=== PATIENT | male | born 1970 | race Caucasian/White ===

== ENCOUNTER 2016-07-23 14:34 | Emergency (ER) | payer OTHER ==
[~2016-07-23] VITALS: Wt 90.0 kg
[~2016-07-23 14:34] MED LIST: ACET-2047 PO; ALBU18HF INHALATION; BEN25 PO; BENA40TA41; CEPH-443 PO; FAMO-18 PO; HYDR-3498 PO; IBUP-1542 PO; INSU100C SC; LANT3I SC; NAPR-688 PO; PRED20TA PO; TEN25
[2016-07-23] MEDS ORDERED: ONDANSETRON 4 MG INJ IV STA (17:16)
[2016-07-23] MEDS ORDERED: morphine 4 MG/ML VIAL IV STA (17:16)
[2016-07-23 17:41] LABS: ADD SCAN DIFF NO
[2016-07-23 17:43] LABS: BASOPHIL # 0.1 10^3/ul (0.0-0.1); BASOPHILS % 0.7 % (0.0-2.0); EOSINOPHILS # 0.2 10^3/ul (0.0-0.5); EOSINOPHILS % 1.7 % (0.0-7.0); HEMATOCRIT 46.5 % (42.0-52.0); HEMOGLOBIN 15.9 g/dl (14.0-18.0); LYMPHOCYTES # 3.5 10^3/ul (0.8-2.9); LYMPHOCYTES % 34.5 % (15.0-51.0); MEAN CORPUSCULAR HEMOGLOBIN 30.4 pg (29.0-33.0); MEAN CORPUSCULAR HGB CONC 34.2 g/dl (32.0-37.0); MEAN CORPUSCULAR VOLUME 88.9 fl (82.0-101.0); MEAN PLATELET VOLUME 10.9 fl (7.4-10.4); MONOCYTE # 0.8 10^3/ul (0.3-0.9); MONOCYTES % 7.4 % (0.0-11.0); NEUTROPHIL # 5.7 10^3/ul (1.6-7.5); NEUTROPHILS % 55.4 % (39.0-77.0); PLATELET COUNT 273 10^3/UL (140-415); RED BLOOD COUNT 5.23 10^6/ul (4.70-6.10); RED CELL DISTRIBUTION WIDTH 12.1 % (11.5-14.5); WHITE BLOOD COUNT 10.2 10^3/ul (4.8-10.8)
[2016-07-23 17:57] LABS: ADD UMIC YES; URINE BILIRUBIN (Dip) NEGATIVE (NEGATIVE); URINE BLOOD (Dip) NEGATIVE (NEGATIVE); URINE COLOR YELLOW (YELLOW); URINE KETONES (Dip) NEGATIVE (NEGATIVE); URINE LEUKOCYTE ESTERASE (Dip) NEGATIVE (NEGATIVE); URINE NITRITE (Dip) NEGATIVE (NEGATIVE); URINE TOTAL PROTEIN (Dip) TRACE (NEGATIVE); URINE UROBILINOGEN (Dip) 0.2 E.U./dL (0.1-1.0)
--- NOTE | 2016-07-23 18:00 | RADRPT ---
PROCEDURE: US Abdomen (right upper quadrant). CLINICAL INDICATION: Right upper quadrant abdomen pain. TECHNIQUE: Multiple real-time longitudinal and transverse images of the right upper quadrant of th e abdomen were acquired utilizing a curved array transducer. Images were reviewed on a high-resoluti on PACS workstation. COMPARISON: None FINDINGS: This is a limited study due to a large amount of bowel gas overlying the upper abdomen. The pancrea s, left lobe of liver, and gallbladder are not well seen. The visualized portion of the liver is normal in size and echogenicity. There is no focal hepatic l esion. The visualized portion of the gallbladder is unremarkable. The bile ducts are normal with the common bile duct measuring 4.6 mm in diameter. The pancreas is not visualized. No free fluid is present. The right kidney measures 12.1 x 5.2 x 7.0 cm. There is normal echogenicity of the right kidney. There is no perinephric fluid collection. No hydronephrosis, mass, or calculus is seen. IMPRESSION: 1. Limited study due to overlying bowel gas. 2. Otherwise unremarkable study. RPTAT: QQ .Jerad Jordan MD, Date Time Electronically viewed and signed by .Jerad Jordan MD, on 07/23/2016 18:00 .R/
--- NOTE | 2016-07-23 18:01 | RADRPT ---
PROCEDURE: Chest x-ray CLINICAL INDICATION: Abdominal pain TECHNIQUE: Chest single view COMPARISON: 11/03/2015 FINDINGS: The heart is normal in size. The pulmonary vessels are normal in caliber. The lungs are clear. Th e costophrenic angles are sharp. The visualized bony thorax is unremarkable. IMPRESSION: No acute cardiopulmonary disease. RPTAT: HH .Choco Tapia MD, Date Time Electronically viewed and signed by .Choco Tapia MD, on 07/23/2016 18:01 .W/
[2016-07-23 18:04] LABS: ALBUMIN 4.6 g/dl (3.3-4.9); POTASSIUM 4.5 mmol/L (3.5-5.1)
[2016-07-23 18:07] LABS: ALBUMIN/GLOBULIN RATIO 1.27; BILIRUBIN,INDIRECT 0.5 mg/dl (0-1.1); BILIRUBIN,TOTAL 0.5 mg/dl (0.2-1.3); CREATININE 0.93 mg/dl (0.61-1.24); TOTAL PROTEIN 8.2 g/dl (6.1-8.1)
[2016-07-23 18:08] LABS: CALCIUM 9.5 mg/dl (8.4-10.2)
[2016-07-23 18:27] LABS: MUCUS,URINE FEW
[2016-07-23 18:28] LABS: BACTERIA,URINE FEW; SQUAMOUS EPITHELIAL CELL,UR MODERATE; URINE RBCS 0-2 /HPF (0)
[2016-07-23] MEDS ORDERED: TRAM-40 PO (18:57)
[2016-07-23] MEDS ORDERED: IBUP-1542 PO (18:57)
--- NOTE | 2016-07-23 19:01 | ERD ---
ER Documentation Chief Complaint Date/Time DATE: 07/23/16 TIME: 18:59 Chief Complaint R UPPER QUAD ABD PAIN SINCE TODAY. NO NAUSEA NO VOMITING, NO HEADACHE HPI This 46-year-old male complains of right upper quadrant abdominal pain since morning. Denies any nausea vomiting, fevers. He denies any chest pain or shortness of breath. He denies any dysuria. ROS All systems reviewed and are negative except as per history of present illness. Medications Home Meds Active Scripts Ibuprofen* (Ibuprofen*) 600 Mg Tablet, 600 MG PO Q6, #20 TAB Prov:PATTI ANGLIN MD 07/23/16 Tramadol Hcl* (Ultram*) 50 Mg Tablet, 50 MG PO Q6H Y for PAIN, #20 TAB Prov:PATTI ANGLIN MD 07/23/16 Acetaminophen* (Acetaminophen*) 650 Mg Tablet, 650 MG PO Q6H Y for PAIN AND OR ELEVATED TEMP, #20 TAB Prov:ALLIE GRAHAM DO 04/18/16 Ibuprofen* (Ibuprofen*) 600 Mg Tablet, 600 MG PO Q8, #20 TAB Prov:ALLIE GRAHAM DO 04/18/16 Cephalexin* (Keflex*) 500 Mg Capsule, 500 MG PO QID for 5 Days, CAP Prov:GLADYS,[facility] 04/18/16 Albuterol Sulfate* (Ventolin HFA*) 18 Gm Hfa.aer.ad, 2 PUFF INHALATION Q6H, #1 INHALER 0 Refills Prov:MELI MANN PA-C 01/13/16 Famotidine* (Pepcid*) 20 Mg Tablet, 20 MG PO BID for 4 Days, #8 TAB 0 Refills Prov:MELI MANN PA-C 01/13/16 Diphenhydramine Hcl* (Benadryl*) 25 Mg Cap, 25 MG PO Q6 for ITCHING for 7 Days, #30 CAP 0 Refills Prov:MELI MANN PA-C 01/13/16 Prednisone* (Prednisone*) 20 Mg Tab, 40 MG PO DAILY for 4 Days, #8 TAB 0 Refills Prov:MELI MANN PA-C 01/13/16 Hydrocodone Bit-Acetaminophen* ([place]*) 5-325 Mg Tab, 1 TAB PO Q4H Y for SEVERE PAIN LEVEL 7-10, #5 TAB Prov:VIJAYA HUYNH DO 11/03/15 Naproxen* (Naproxen*) 500 Mg Tablet, 500 MG PO BID, #20 TAB Prov:VIJAYA HUYNH DO 11/03/15 Reported Medications Insulin Lispro (Humalog) 100 U/Ml Cartridge, 40 UNITS SC AC BREAKFAST DINNER, EA 06/22/15 Insulin Glargine* (Lantus*) 100 Unit/Ml Soln, 60 UNIT SC AC BREAKFAST DINNER, # 1 VIAL 06/22/15 Benazepril Hcl* (Benazepril Hcl*) 40 Mg Tablet 10/07/09 Atenolol (Tenormin) 25 Mg Tab 10/07/09 Allergies Allergies: Coded Allergies: No Known Allergy (Verified , 11/03/15) PMhx/Soc History of Surgery: Yes (left knee, left shoulder) Anesthesia Reaction: No Hx Neurological Disorder: No Hx Respiratory Disorders: No Hx Cardiac Disorders: Yes (HTN) Hx Psychiatric Problems: No Hx Miscellaneous Medical Probl: Yes (DM) Hx Alcohol Use: Yes (OCASSIONALLY) Hx Substance Use: No Hx Tobacco Use: No Smoking Status: Never smoker Physical Exam Vitals Vital Signs Date Time Temp Pulse Resp B/P Pulse Ox O2 Delivery O2 Flow Rate FiO2 07/23/16 14:44 98.8 102 20 165/91 98 Physical Exam Const: [] Alert, [id number] per Head: Atraumatic Eyes: Normal Conjunctiva ENT: Normal External Ears, Nose and Mouth. Neck: Full range of motion..~ No meningismus. Resp: Clear to auscultation bilaterally Cardio: Regular rate and rhythm, no murmurs Abd: Soft mild tenderness right upper quadrant. No rebound. No tenderness at McBurney's point., non distended. Normal bowel sounds Skin: No petechiae or rashes Back: No midline or flank tenderness Ext: No cyanosis, or edema Neur: Awake and alert Psych: Normal Mood and Affect Result Diagram: 07/23/16 1720 07/23/16 1720 Results 24 hrs Laboratory Tests Test 07/23/16 17:20 Alanine Aminotransferase (ALT/SGPT) 33IU/L Albumin 4.6g/dl Albumin/Globulin Ratio 1.27 Alkaline Phosphatase 165IU/L Anion Gap 18 Aspartate Amino Transf (AST/SGOT) 39IU/L Basophils # 0.110^3/ul Basophils % 0.7% Blood Urea Nitrogen 19mg/dl Calcium Level 9.5mg/dl Carbon Dioxide Level 34mmol/L Chloride Level 99mmol/L Creatinine 0.93mg/dl Direct Bilirubin 0.00mg/dl Eosinophils # 0.210^3/ul Eosinophils % 1.7% Globulin 3.60g/dl Glucose Level 235mg/dl Hematocrit 46.5% Hemoglobin 15.9g/dl Indirect Bilirubin 0.5mg/dl Lipase 42U/L Lymphocytes # 3.510^3/ul Lymphocytes % 34.5% Mean Corpuscular Hemoglobin 30.4pg Mean Corpuscular Hemoglobin Concent 34.2g/dl Mean Corpuscular Volume 88.9fl Mean Platelet Volume 10.9fl Monocytes # 0.810^3/ul Monocytes % 7.4% Neutrophils # 5.710^3/ul Neutrophils % 55.4% Nucleated Red Blood Cells # 0.010^3/ul Nucleated Red Blood Cells % 0.0/100WBC Platelet Count 50922^3/UL Potassium Level 4.5mmol/L Red Blood Count 5.2310^6/ul Red Cell Distribution Width 12.1% Sodium Level 146mmol/L Total Bilirubin 0.5mg/dl Total Protein 8.2g/dl Urine Bacteria FEW Urine Bilirubin NEGATIVE Urine Clarity CLEAR Urine Color YELLOW Urine Glucose 0.5%% Urine Hemoglobin NEGATIVE Urine Ketones NEGATIVE Urine Leukocyte Esterase NEGATIVE Urine Microscopic RBC 0-2/HPF Urine Microscopic WBC 5-10/HPF Urine Mucus FEW Urine Nitrite NEGATIVE Urine Specific [place] 1.025 Urine Squamous Epithelial Cells MODERATE Urine Total Protein TRACE Urine Urobilinogen 0.2 E.U./dL Urine pH 6.0 White Blood Count 10.210^3/ul Current Medications Medications (Trade) Dose Ordered Sig/Kelvin Route PRN Reason Start Time Stop Time Status Last Admin Dose Admin Morphine Sulfate (morphine) 4 mg ONCE STAT IV 07/23/16 17:16 07/23/16 17:17 DC 07/23/16 17:20 Ondansetron HCl (Zofran Inj) 4 mg ONCE STAT IV 07/23/16 17:16 07/23/16 17:17 DC 07/23/16 17:21 IV Flush 10 ml 10 ml STK-MED ONCE .ROUTE 07/23/16 19:35 2/27/17 19:36 DC 07/23/16 19:43 Sodium Chloride (NS) 100 ml @ ud STK-MED ONCE .ROUTE 07/23/16 19:35 07/23/16 19:36 DC 07/23/16 19:43 Iohexol (Omnipaque 300mg/ ml) 150 ml STK-MED ONCE .ROUTE 07/23/16 19:35 07/23/16 19:36 DC 07/23/16 19:43 Procedures/MDM Given the uncertain cause of right upper quadrant pain right upper quadrant ultrasound shows no gallstones or acute abnormalities. Chest X-ray 1V Interpreted by me: Soft Tissue: No acute abnormalities Bones: No acute abnormalities Mediastinum/Cardiac Silhouette/Lungs: [No acute abnormalities]. Impression Normal 1 view chest x-ray Patient was given morphine 4 mg IV and Zofran 4 mg IV. CBC shows no acute abnormality. C and P shows elevated glucose otherwise no acute findings and no transaminitis and lipase is normal. Persistent tenderness on serial exam. CT abdomen and pelvis and chest with IV contrast to evaluate aorta showed no acute abnormalities according to the radiologist.. Patient is right upper quadrant abdominal pain 1 day of uncertain etiology. Patient was given Toradol 30 mg IV. May be muscular skeletal. Signs or symptoms not consistent with pulmonary embolism, acute coronary syndrome, aortic disease, acute abdomen, UTI or genitourinary etiology. He will be treated with tramadol and ibuprofen and further observation at home. Patient should return for chest pain, shortness breath, fevers, worsening pain, new worsening symptoms or primary care doctor this week. The patient was stable with no new complaints during the ER course. Clinically, there is no current evidence to suggest meningitis, sepsis, acute abdomen, pneumonia, acute coronary syndrome, pulmonary embolism, or any other emergent condition appearing to require further evaluation or hospitalization. The patient should certainly return for any new or worsening symptoms per the aftercare instructions. They should otherwise follow-up with her primary care doctor for reevaluation this week. Departure Diagnosis: Primary Impression: Abdominal pain Abdominal location: right upper quadrant Qualified Code: R10.11 - Right upper quadrant abdominal pain Condition: Stable Patient Instructions: Abdominal Pain Additional Instructions: Examines normal hoy. Cheque otro vez con shaver doctor primario en el proximo tamez or regresa para mas o nueva simptomas. TEEHEE,PATTI N. MD Jul 23, 2016 19:01
[2016-07-23] MEDS ORDERED: SOD CHLORIDE 0.9% 100 ML ONE (19:35)
[2016-07-23] MEDS ORDERED: IOHEXOL 300MG/ML 150 ML BTL ONE (19:35)
--- NOTE | 2016-07-23 19:57 | RADRPT ---
PROCEDURE: CT Chest, Abdomen and Pelvis with contrast. CLINICAL INDICATION: Abdominal and chest pain TECHNIQUE: CT scan of the chest, abdomen, and pelvis with contrast was performed on a multi-detect or high-resolution CT scanner. The patient was scanned following the uncomplicated intravenous admi nistration of 100 cc of Omnipaque 300 intravenous contrast. Coronal and sagittal reformatted images were obtained from the axial source images. Images were reviewed on a high-resolution PACS workstat ion. The total exam CTDI equals 13.4 mGy and the total exam DLP equals 1105 mGy-cm. COMPARISON: CT of the abdomen and pelvis dated May 02, 2015 FINDINGS: CT chest: Visualized thyroid gland is grossly normal. The central airways are clear. The esophagus is grossl y unremarkable throughout its course. The heart is normal in size. No significant coronary calcifications. No pericardial effusion. No intracardiac filling defects. No mediastinal, hilar, nor axillary adenopathy. Minimal scattered calcifications of the thoracic aorta without dissection or aneurysm. The central pulmonary arteries are free of filling defects. The lungs are clear without focal airspace opacity, pleural effusion, or pneumothorax. No suspicious osseous lesions or fractures in the chest. CT abdomen/Pelvis: The liver, spleen, bilateral adrenal glands, pancreas, and gallbladder are normal-appearing. The bilateral kidneys are normal-appearing without hydronephrosis nor suspicious renal mass. No hyd ronephrosis. The urinary bladder is grossly normal. Abdominal aorta is normal in caliber without dissection or aneurysm. The small and large bowel are thin-walled and nondilated without evidence for obstruction. Normal a ppendix. No abdominal pelvic adenopathy, free air, free fluid, nor mesenteric stranding. No suspicious osseous lesions. Degenerative disk disease is present at L5-S1 without suspicious osse ous lesions or fractures. IMPRESSION: No acute intrathoracic, intra-abdominal, nor intrapelvic findings. Degenerative disk disease at L5-S1. Physician Courtney Date Time Electronically viewed and signed by Physician Courtney on 07/23/2016 19:56 ML/
[2016-07-23] MEDS ORDERED: KETOROLAC 30 MG INJ IV STA (20:06)
[2016-07-23 20:47] VITALS: BP 163/98; PULSE 83; RESP 16
== END 2016-07-23 20:48 | disposition home or self-care (01) ==
LOC: FTE 14:34
DX: R10.11 Right upper quadrant pain (principal); I10 Essential (primary) hypertension; E11.9 Type 2 diabetes mellitus without complications; Z79.4 Long term (current) use of insulin
CPT/HCPCS: 36415; 71010; 71260; 74177; 76705; 80053; 81001; 83690; 85025; 96374; 96375; J1885; J2270; J2405; Q9967; Z7502; Z7610; 81003

== ENCOUNTER 2016-09-19 21:28 | Inpatient (IN) | payer OTHER ==
[~2016-09-19] VITALS: Ht 177.8 cm; Wt 98.0 kg
[~2016-09-19 21:28] MED LIST changes: +ATEN-138; -TEN25; +TRAM-40 PO
[2016-09-19] MEDS ORDERED: NITROGLYCERIN 2% 1 GM OINT PKT TD STA (23:55)
[2016-09-19] MEDS ORDERED: SOD CHLORIDE 0.9% 1,000 ML IV STA (23:55)
[2016-09-20] MEDS ORDERED: LABETALOL HCL 20MG INJ IV ONE
--- NOTE | 2016-09-20 00:12 | ERA ---
ER Documentation Chief Complaint Date/Time DATE: 09/20/16 TIME: 00:09 Chief Complaint chest tightness today, leg pain, right toes pain HPI 46-year-old male. Poor historian. History of hypertension, hyperlipidemia, diabetes. The patient presents with multiple complaints that are nonspecific. The patient states that he woke up this morning with bilateral leg pain, left slightly greater than worse. He describes mild weakness that is since resolved. Patient also notes chest pain intermittently throughout the day. He describes it as very sharp pain that lasts approximately 1-2 seconds with associated pressure the last for 1-2 minutes. He denies any mid back pain, no pleuritic pain, no recent travel or immobilization. The patient is chest pain- free currently. His blood pressures in the 200s. He states compliance with blood pressure medication. No headache. ROS All systems reviewed and are negative except as per history of present illness. Medications Home Meds Active Scripts Ibuprofen* (Ibuprofen*) 600 Mg Tablet, 600 MG PO Q6, #20 TAB Prov:PATTI ANGLIN MD 07/23/16 Tramadol Hcl* (Ultram*) 50 Mg Tablet, 50 MG PO Q6H Y for PAIN, #20 TAB Prov:PATTI ANGLIN MD 07/23/16 Acetaminophen* (Acetaminophen*) 650 Mg Tablet, 650 MG PO Q6H Y for PAIN AND OR ELEVATED TEMP, #20 TAB Prov:GLADYS,ALLIE 04/18/16 Ibuprofen* (Ibuprofen*) 600 Mg Tablet, 600 MG PO Q8, #20 TAB Prov:GLADYS,[facility] 04/18/16 Cephalexin* (Keflex*) 500 Mg Capsule, 500 MG PO QID for 5 Days, CAP Prov:GLADYS,[facility] 04/18/16 Albuterol Sulfate* (Ventolin HFA*) 18 Gm Hfa.aer.ad, 2 PUFF INHALATION Q6H, #1 INHALER 0 Refills Prov:MELI MANN PA-C 01/13/16 Famotidine* (Pepcid*) 20 Mg Tablet, 20 MG PO BID for 4 Days, #8 TAB 0 Refills Prov:MELI MANN PA-C 01/13/16 Diphenhydramine Hcl* (Benadryl*) 25 Mg Cap, 25 MG PO Q6 for ITCHING for 7 Days, #30 CAP 0 Refills Prov:MELI MANN PA-C 01/13/16 Prednisone* (Prednisone*) 20 Mg Tab, 40 MG PO DAILY for 4 Days, #8 TAB 0 Refills Prov:MELI MANN PA-C 01/13/16 Hydrocodone Bit-Acetaminophen* ([place]*) 5-325 Mg Tab, 1 TAB PO Q4H Y for SEVERE PAIN LEVEL 7-10, #5 TAB Prov:VIJAYA HUYNH DO 11/03/15 Naproxen* (Naproxen*) 500 Mg Tablet, 500 MG PO BID, #20 TAB Prov:VIJAYA HUYNH DO 11/03/15 Reported Medications Insulin Lispro (Humalog) 100 U/Ml Cartridge, 40 UNITS SC AC BREAKFAST DINNER, EA 06/22/15 Insulin Glargine* (Lantus*) 100 Unit/Ml Soln, 60 UNIT SC AC BREAKFAST DINNER, # 1 VIAL 06/22/15 Benazepril Hcl* (Benazepril Hcl*) 40 Mg Tablet 10/07/09 Atenolol (Tenormin) 25 Mg Tab 10/07/09 Allergies Allergies: Coded Allergies: No Known Allergy (Verified , 11/03/15) PMhx/Soc History of Surgery: Yes (left knee, left shoulder) Anesthesia Reaction: No Hx Neurological Disorder: No Hx Respiratory Disorders: No Hx Cardiac Disorders: Yes (HTN) Hx Psychiatric Problems: No Hx Miscellaneous Medical Probl: Yes (DM) Hx Alcohol Use: Yes (OCASSIONALLY) Hx Substance Use: No Hx Tobacco Use: No Smoking Status: Never smoker FmHx Family History: diabetes Physical Exam Vitals Vital Signs Date Time Temp Pulse Resp B/P Pulse Ox O2 Delivery O2 Flow Rate FiO2 09/20/16 02:30 98.3 85 16 158/96 100 Room Air 09/20/16 00:55 80 19 164/89 98 09/20/16 00:02 84 16 227/114 100 Room Air 09/19/16 21:31 97.9 109 20 204/98 99 Physical Exam General: Well developed, well nourished, no acute distress Head: Normocephalic, atraumatic. Eyes: Pupils equally reactive, EOM intact ENT: Moist mucous membranes Neck: Supple, no lymphadenopathy Respiratory: Lungs clear bilaterally, no distress Cardiovascular: RRR, no murmurs, rubs, or gallops Abdominal: Soft, non-tender, non-distended, no peritoneal signs : Deferred MSK: No edema, no unilateral swelling, 5/5 strength, no pulse deficits. Bilateral lower extremities are warm, perfused, 2 posterior cells pedis and posterior tibial pulses. Neurologic: Alert and oriented, moving all extremities, normal speech, no focal weakness, no cerebellar signs Skin: No rash Psych: Normal mood Result Diagram: 09/20/16 0005 09/20/16 0005 Results 24 hrs Laboratory Tests Test 09/19/16 23:55 09/20/16 00:05 09/20/16 00:12 Bedside Glucose 418mg/dL White Blood Count 9.010^3/ul Red Blood Count 4.7510^6/ul Hemoglobin 15.2g/dl Hematocrit 42.8% Mean Corpuscular Volume 90.1fl Mean Corpuscular Hemoglobin 32.0pg Mean Corpuscular Hemoglobin Concent 35.5g/dl Red Cell Distribution Width 12.0% Platelet Count 51309^3/UL Mean Platelet Volume 10.5fl Neutrophils % 44.8% Lymphocytes % 45.0% Monocytes % 7.1% Eosinophils % 2.0% Basophils % 0.8% Nucleated Red Blood Cells % 0.0/100WBC Neutrophils # 4.110^3/ul Lymphocytes # 4.110^3/ul Monocytes # 0.610^3/ul Eosinophils # 0.210^3/ul Basophils # 0.110^3/ul Nucleated Red Blood Cells # 0.010^3/ul Prothrombin Time 11.4Sec Prothrombin Time Ratio 0.9 INR International Normalized Ratio 0.83 Activated Partial Thromboplast Time 26.7Sec Sodium Level 133mmol/L Potassium Level 4.5mmol/L Chloride Level 99mmol/L Carbon Dioxide Level 28mmol/L Anion Gap 11 Blood Urea Nitrogen 17mg/dl Creatinine 0.96mg/dl Glucose Level 447mg/dl Calcium Level 9.0mg/dl Total Bilirubin 0.1mg/dl Direct Bilirubin 0.00mg/dl Indirect Bilirubin 0.1mg/dl Aspartate Amino Transf (AST/SGOT) 34IU/L Alanine Aminotransferase (ALT/SGPT) 41IU/L Alkaline Phosphatase 238IU/L Troponin I < 0.012ng/ml B-Type Natriuretic Peptide 70PG/ML Total Protein 7.5g/dl Albumin 3.9g/dl Globulin 3.60g/dl Albumin/Globulin Ratio 1.08 Blood Gas Specimen Source Blood venous Arterial Blood Date Drawn 09/20/2016 12:12:36 AM Arterial Blood Gas Puncture Site VENOUS LINE Mickey Test N/A Venous Blood pH 7.367 Venous Blood pCO2 (Temp Corrected) 52.4mmHG Venous Blood pO2 (Temp Corrected) 25.7mmHG Venous Blood HCO3 29.4mmol/L Venous Blood Oxygen Saturation 46.6mmHG Venous Blood Base Excess 2.8mmol/L Venous Blood Total Hemoglobin 15.5g/dl Venous Blood Oxyhemoglobin 46.4% Venous Blood Methemoglobin 0.3% Carboxyhemoglobin 0.1% Blood Gas Temperature 37.0C Blood Gas Modality ROOM AIR FiO2 21.0% Blood Gas Notified Whom MG Blood Gas Notified Time 09/20/2016 12:19:01 AM Current Medications Medications (Trade) Dose Ordered Sig/Kelvin Route PRN Reason Start Time Stop Time Status Last Admin Dose Admin Sodium Chloride (NS) 1,000 ml @ 1,000 mls/hr Q1H STAT IV 09/19/16 23:55 09/20/16 00:54 DC 09/20/16 00:21 Nitroglycerin (Nitroglycerin 2% Oint) 1 inch ONCE STAT TD 09/19/16 23:55 09/19/16 23:58 DC 09/20/16 00:17 Labetalol HCl (Labetalol) 20 mg ONCE ONCE IV 09/20/16 00:00 09/20/16 00:01 DC 09/20/16 00:18 Insulin Human Lispro 8 unit 8 unit ONCE STAT SC 09/20/16 00:40 09/20/16 00:42 DC 09/20/16 01:06 Sodium Chloride (NS) 100 ml @ ud STK-MED ONCE .ROUTE 09/20/16 01:05 09/20/16 01:06 DC 09/20/16 01:30 Iohexol (Omnipaque 300mg/ ml) 150 ml STK-MED ONCE .ROUTE 09/20/16 01:05 09/20/16 01:06 DC 09/20/16 01:30 Morphine Sulfate (morphine) 4 mg ONCE STAT IV 09/20/16 01:26 09/20/16 01:27 DC 09/20/16 01:38 Ondansetron HCl (Zofran Inj) 4 mg ONCE STAT IV 09/20/16 01:26 09/20/16 01:27 DC 09/20/16 01:38 Aspirin (Aspirin) 324 mg ONCE ONCE PO 09/20/16 03:30 09/20/16 03:31 DC 09/20/16 03:35 Ondansetron HCl (Zofran Inj) 4 mg ER BRIDGE PRN IV NAUSEA AND/OR VOMITING 09/20/16 04:00 09/21/16 03:59 Acetaminophen (Tylenol Tab) 650 mg ER BRIDGE PRN PO MILD PAIN/FEVER 09/20/16 04:00 09/21/16 03:59 Procedures/MDM EKG, MONITORS, & DIAGNOSTIC IMAGING: EKG: I reviewed and interpreted a 12-lead EKG. Rhythm: Normal sinus rhythm Ectopy: None Intervals: No abnormalities ST segments: No elevations or depressions T waves: No contiguous inversions Repeat EKG: EKG: I reviewed and interpreted a 12-lead EKG. Rhythm: Normal sinus rhythm Ectopy: None Intervals: No abnormalities ST segments: No elevations or depressions T waves: No contiguous inversions Chest x-ray: I reviewed and interpreted a 1 view of the chest Mediastinum: No enlargement Cardiac silhouette: No cardiomegaly Airspace: Clear lung reed bilaterally without evidence of pneumothorax Bones: No evidence of fracture CTA chest: No evidence of dissection LAB INTERPRETATION: Negative troponin, hyperglycemia without DKA MEDICAL DECISION MAKING: The patient's history, physical exam and clinical presentation is concerning for possible cardiogenic etiology and acute coronary syndrome. The patient's bilateral lower extremity symptoms are possibly related to diabetic neuropathy. However, given the patient's significantly elevated blood pressure this does raise a concern for possible dissection. A CT of the chest abdomen and pelvis would be appropriate to rule out this process. Based on the patient's clinical exam and history and risk factors, I have a much lower clinical concern for pulmonary embolism, pneumothorax, pneumonia, cardiac tamponade HEART Score: 4 MACE Rate: 16.6% Shared Decision Making: We had a conversation regarding risk stratification, MACE rate, and the risks, benefits, alternatives of disposition planning options. Disposition planning: Strongly encourage inpatient hospitalization given no report of stress testing and risk profile. ER COURSE: Aspirin ordered and given after negative CTA. Labetalol provided. The patient's blood pressure has improved. He remains chest pain-free. Aspirin provided after negative CTA. Humalog provided for hyperglycemia. I kept the patient and/or family informed of laboratory and diagnostic imaging results throughout the emergency room course. DISPOSITION PLAN: Telemetry admission for management of hypertensive emergency/urgency, chest pain CONSULTATION: Accepting care team and consultations: I discussed the current laboratory data, diagnostic imaging and emergency care provided. Admitting team: Dr. Romero Admitting team indication: Insurance directed Departure Diagnosis: Primary Impression: Chest pain Qualified Code: R07.9 - Chest pain, unspecified type Additional Impressions: Hypertensive urgency Hyperglycemia Diabetic neuropathy Qualified Code: E11.42 - Diabetic polyneuropathy associated with type 2 diabetes mellitus Condition: JODEE Nino MD Sep 20, 2016 00:12
[2016-09-20 00:19] LABS: ADD SCAN DIFF NO
[2016-09-20 00:19] LABS: MODE ROOM AIR; MetHgb Venous 0.3 %; Sample Type Blood venous; Venous COHb 0.1 %; Venous Fraction OxyHgb 46.4 %; Venous Total Hemglobin 15.5 g/dl
[2016-09-20 00:22] LABS: BASOPHIL # 0.1 10^3/ul (0.0-0.1); BASOPHILS % 0.8 % (0.0-2.0); EOSINOPHILS # 0.2 10^3/ul (0.0-0.5); HEMATOCRIT 42.8 % (42.0-52.0); HEMOGLOBIN 15.2 g/dl (14.0-18.0); LYMPHOCYTES # 4.1 10^3/ul (0.8-2.9); MEAN CORPUSCULAR HGB CONC 35.5 g/dl (32.0-37.0); MEAN CORPUSCULAR VOLUME 90.1 fl (82.0-101.0); MEAN PLATELET VOLUME 10.5 fl (7.4-10.4); MONOCYTE # 0.6 10^3/ul (0.3-0.9); MONOCYTES % 7.1 % (0.0-11.0); NEUTROPHIL # 4.1 10^3/ul (1.6-7.5); NEUTROPHILS % 44.8 % (39.0-77.0); PLATELET COUNT 256 10^3/UL (140-415); RED BLOOD COUNT 4.75 10^6/ul (4.70-6.10)
[2016-09-20 00:37] LABS: ALANINE AMINOTRANSFERASE 41 IU/L (13-69); ALBUMIN 3.9 g/dl (3.3-4.9); ALBUMIN/GLOBULIN RATIO 1.08; ALKALINE PHOSPHATASE 238 IU/L (42-121); ANION GAP 11 (8-16); ASPARTATE AMINO TRANSFERASE 34 IU/L (15-46); BILIRUBIN,INDIRECT 0.1 mg/dl (0-1.1); BILIRUBIN,TOTAL 0.1 mg/dl (0.2-1.3); BLOOD UREA NITROGEN 17 mg/dl (7-20); CARBON DIOXIDE 28 mmol/L (21-31); CHLORIDE 99 mmol/L (97-110); CREATININE 0.96 mg/dl (0.61-1.24); POTASSIUM 4.5 mmol/L (3.5-5.1); SODIUM 133 mmol/L (135-144); TOTAL PROTEIN 7.5 g/dl (6.1-8.1)
[2016-09-20 00:40] LABS: GLUCOSE 447 mg/dl (70-220)
[2016-09-20] MEDS ORDERED: INSULIN LISPRO 100 UNIT/ML VIAL SC STA (00:40)
[2016-09-20 00:47] LABS: INR 0.83; PARTIAL THROMBOPLASTIN TIME 26.7 Sec (25.0-35.0); PROTIME 11.4 Sec (12.2-14.2); PT RATIO 0.9
[2016-09-20 00:49] LABS: B-TYPE NATRIURETIC PEPTIDE 70 PG/ML (0-125)
[2016-09-20 00:56] LABS: TROPONIN-I < 0.012 ng/ml (0.00-0.12)
[2016-09-20] MEDS ORDERED: SOD CHLORIDE 0.9% 100 ML ONE (01:05)
[2016-09-20] MEDS ORDERED: IOHEXOL 300MG/ML 150 ML BTL ONE (01:05)
--- NOTE | 2016-09-20 01:08 | RADRPT ---
PROCEDURE: XR Chest. CLINICAL INDICATION: Chest pain. TECHNIQUE: PA and Lateral views of the chest were obtained. COMPARISON: Chest dated 07/23/2016. FINDINGS: The cardiomediastinal silhouette is within normal limits. Mild pulmonary vascular congestion. Lungs otherwise substantially clear. No signs of pleural fluid or pneumothorax are seen. The osseous struc tures and soft tissues are unremarkable. IMPRESSION: Mild pulmonary vascular congestion. RPTAT: [facility] Physician Deb Date Time Electronically viewed and signed by Physician Deb on 09/20/2016 01:08 RS/
[2016-09-20] MEDS ORDERED: morphine 4 MG/ML VIAL IV STA (01:26)
[2016-09-20] MEDS ORDERED: ONDANSETRON 4 MG INJ IV STA (01:26)
--- NOTE | 2016-09-20 03:21 | RADRPT ---
PROCEDURE: CTA Chest, Abdomen and Pelvis with contrast. CLINICAL INDICATION: Rule out dissection TECHNIQUE: CTA scan of the chest, abdomen, and pelvis with contrast [facility] The patient was scanned following the intravenous administration of 100 cc of Omnipaque 300 intravenous contrast. Coronal and sagittal reformatted images were obtaine d from the axial source images. Images were reviewed on a high-resolution PACS workstation. The tota l exam CTDI equals 23.47 +16.05 mGy and the total exam DLP equals 1316.16 mGy-cm. One or more the following dose reduction techniques were utilized: Automated exposure control, adjus tment of the mA/ or kV according to patient's size, or use of iterative reconstruction technique. COMPARISON: Chest x-ray of 09/20/[address] chest, abdomen and pelvis with contrast of 07/23/2016 FINDINGS: CTA chest: Minimal dependent atelectasis in posterior lungs. No focal opacification, effusion, pneumothorax, ed mary, or nodules are seen. There is no acute infiltrate. The central tracheobronchial tree is clear. The mediastinum is unremarkable without evidence for mass or lymphadenopathy. The vascular structur es of the mediastinum are normal in course and caliber. Minimal thoracic aortic calcification. No t horacic aortic aneurysm or dissection is seen. The left common carotid artery arises from the right brachiocephalic artery. The heart size is normal without evidence for pericardial thickening or effu satish. The axillary regions, subpectoral regions, and supraclavicular regions are all unremarkable. T he surrounding chest wall is unremarkable. CTA abdomen: Hepatic steatosis again apparent. The spleen is normal in size and homogeneous in density. The stom ach is partially collapsed, but is grossly unremarkable. The pancreas as visualized is normal. The gallbladder appears to be mildly contracted. There is no evidence for biliary dilatation. The adr enal glands are symmetric and normal. The kidneys are symmetrically unremarkable as well. No renal calculus or obstructive uropathy or mass lesion is seen. The aorta is of normal caliber. Minimal aorta vascular calcifications are present. No abdominal aor tic dissection is seen. 3 left renal arteries and 2 right renal arteries are seen. No significant s tenosis is seen in these arteries. No significant stenosis is seen in the celiac or superior mesent ravin or inferior mesenteric arteries. There is no retroperitoneal lymphadenopathy. The titi hepati s region is clear. The bowel and mesentery, as visualized, are unremarkable. CTA pelvis: Small amount of right common iliac and left internal iliac arterial calcification is seen. The small bowel loops situated within the pelvis are unremarkable. The pelvic organs are normal. The pelvic sidewalls and inguinal regions are clear. The sigmoid colon and rectum are unremarkable No mass, lymphadenopathy, or free fluid is seen. No acute inflammation is seen. Small scattered bone islands again seen. Lumbar spondylosis. Mild degenerative changes at sacroilia c joints. IMPRESSION: No aortic dissection seen. Hepatic steatosis. Please see above. RPTAT: HJES .Kade Perry MD, Date Time Electronically viewed and signed by .Kade Perry MD, on 09/20/2016 03:21 .S/
[2016-09-20] MEDS ORDERED: ASPIRIN 81 MG TAB PO ONE (03:30)
[2016-09-20] MEDS ORDERED: ACETAMINOPHEN 325 MG TAB PO PRN (04:00)
[2016-09-20] MEDS ORDERED: ONDANSETRON 4 MG INJ IV PRN ×2 (04:00→09:00)
[2016-09-20 06:09] LABS: CREATINE KINASE 89 IU/L (23-200)
[2016-09-20 06:21] LABS: TROPONIN-I < 0.012 ng/ml (0.00-0.12)
[2016-09-20] MEDS ORDERED: ATEN-51 PO (07:55)
[2016-09-20] MEDS ORDERED: BENA40TA41 PO (07:56)
[2016-09-20] MEDS ORDERED: morphine 2 MG INJ IV PRN (09:00)
[2016-09-20] MEDS ORDERED: GLUCAGON 1 MG INJ IM PRN (09:00)
[2016-09-20] MEDS ORDERED: GLUCOSE GEL 15 GRAM TUBE PO PRN ×2 (09:00)
[2016-09-20] MEDS ORDERED: ALBUTEROL/IPRATROPIUM (NEB) 3 ML AMP HHN PRN (09:00)
[2016-09-20] MEDS ORDERED: hydrALAzine 20 MG INJ IV PRN (09:00)
[2016-09-20] MEDS ORDERED: NACL 0.9% 3 ML SYG IV SCH (09:00)
[2016-09-20] MEDS ORDERED: GLUCOSE GEL 15 GRAM TUBE BUCCAL PRN (09:00)
[2016-09-20] MEDS ORDERED: DEXTROSE 50% 50 ML SYRINGE IV PRN ×2 (09:00)
[2016-09-20] MEDS ORDERED: LORAZEPAM 2 MG INJ IV PRN (09:00)
[2016-09-20] MEDS ORDERED: NITROGLYCERIN (SL) 0.4 MG TAB SL PRN (09:00)
--- NOTE | 2016-09-20 09:38 | HP ---
Date/Time of Note Date/Time of Note DATE: 09/20/16 TIME: 09:29 Assessment/Plan Lines/Catheters IV Catheter Type (from Nrsg): Saline Lock Assessment/Plan Assessment/Plan 1. Chest Pain: r/o ACS - trend trops - 2D-echo - Cont home beta-jonatan and ACEI - Oxygen, and needed NTG and morphine 2. Hypertensive Urgency: BP better controlled now - cont meds with adjustment as needed 3. Diabetes with Hyperglycemia: no DKA - Adjust insulin as needed HPI/ROS Admit Date/Time Admit Date/Time Hx of Present Illness Patient is a 46 yo male with hx of 46 yo male with hx of HTN, Diabetes presented to ER with c/o chest pain, left sided with no radiation, no N/V, SOB or diaphoresis. He did however c/o abd pain, and generalized weakness mainly lower ext, which has resolved already. patient has visited ER many times with different complaints. His BP on presentation was > 200/100 and blood glucose was > 400. He is non-compliant with meds. . . PMH/Family/Social Social History Smoking Status: Never smoker Exam/Review of Systems Vital Signs Vitals Vital Signs Date Time Temp Pulse Resp B/P Pulse Ox O2 Delivery O2 Flow Rate FiO2 09/20/16 06:30 72 18 152/91 99 Room Air 09/20/16 05:53 98.3 Labs Result Diagram: 09/20/16 0005 09/20/16 0005 Medications Medications Current Medications Sodium Chloride (NS) 1,000 ml @ 100 mls/hr Q10H IV ; Start 09/20/16 at 08:31; Stop 09/20/16 at 23:00 Lorazepam (Ativan) 0.5 mg Q6H PRN IV ANXIETY; Start 09/20/16 at 09:00 Ondansetron HCl (Zofran Inj) 4 mg Q6H PRN IV NAUSEA AND/OR VOMITING; Start at 09:00 Aspirin (Aspirin) 81 mg DAILY PO ; Start 09/20/16 at 09:00 Nitroglycerin (Nitroglycerin (Sl Tab) 0.4 Mg) 1 tab Q5M PRN SL CHEST PAIN; Start 09/20/16 at 09:00 Acetaminophen (Tylenol Tab) 650 mg Q6H PRN PO PAIN LEVEL 1-3 OR FEVER; Start at 09:00 Morphine Sulfate (morphine) 2 mg Q4H PRN IV PAIN LEVEL 7-10; Start 09/20/16 at 09:00 Enoxaparin Sodium (Lovenox) 40 mg DAILY SC ; Start 09/20/16 at 09:00 Atenolol (Tenormin) 25 mg DAILY PO ; Start 09/20/16 at 09:00 Benazepril HCl (Lotensin) 40 mg DAILY PO ; Start 09/20/16 at 09:00 Hydralazine HCl (Apresoline) 10 mg Q4H PRN IV SBP > 160; Start 09/20/16 at 09: 00 Miscellaneous Information 1 ea NOTE XX ; Start 09/20/16 at 09:00 Glucose (Glutose) 15 gm Q15M PRN PO DECREASED GLUCOSE; Start 09/20/16 at 09:00 Glucose (Glutose) 22.5 gm Q15M PRN PO DECREASED GLUCOSE; Start 09/20/16 at 09: 00 Dextrose (D50w Syringe) 25 ml Q15M PRN IV DECREASED GLUCOSE; Start 09/20/16 at 09:00 Dextrose (D50w Syringe) 50 ml Q15M PRN IV DECREASED GLUCOSE; Start 09/20/16 at 09:00 Glucagon (Glucagen) 1 mg Q15M PRN IM DECREASED GLUCOSE; Start 09/20/16 at 09:00 Glucose (Glutose) 15 gm Q15M PRN BUCCAL DECREASED GLUCOSE; Start 09/20/16 at 09 :00 JESUSITA FRAUSTO MD Sep 20, 2016 09:38
[2016-09-20] MEDS: ASPIRIN 81 MG TAB PO SCH (09:45)
[2016-09-20] MEDS: ATENOLOL 25 MG TAB PO SCH (09:45)
[2016-09-20] MEDS: BENAZEPRIL 40 MG TAB PO SCH (09:45)
[2016-09-20] MEDS: SOD CHLORIDE 0.9% 1,000 ML IV SCH ×3 (09:46→20:58)
[2016-09-20] MEDS: ENOXAPARIN 40 MG/0.4 ML SYG SC SCH (09:48)
[2016-09-20] MEDS ORDERED: INSULIN ASPART [NOVOLOG] 3 ML PEN SC SCH ×2 (12:00→17:30)
[2016-09-20] MEDS: INSULIN ASPART [NOVOLOG] 3 ML PEN SC SCH ×3 (12:26→21:01)
[2016-09-20] MEDS: ACETAMINOPHEN 325 MG TAB PO PRN ×2 (12:27→22:46)
[2016-09-20 13:44] LABS: CREATINE KINASE 94 IU/L (23-200)
[2016-09-20 13:55] LABS: CK-MB 0.71 ng/ml (0.0-2.4)
[2016-09-20 14:14] LABS: TROPONIN-I < 0.012 ng/ml (0.00-0.12)
[2016-09-20] MEDS ORDERED: INSULIN GLARGINE [LANtus] 3 ML PEN SC SCH ×2 (17:30→20:00)
[2016-09-20 17:58] VITALS: TEMP 98.1
[2016-09-20 18:22] VITALS: BP 153/84; RESP 20
[2016-09-20 18:25] VITALS: PULSE 61
[2016-09-20 19:44] VITALS: BP 144/69; RESP 20
[2016-09-20 20:04] LABS: CREATINE KINASE 106 IU/L (23-200)
[2016-09-20 20:18] LABS: CK-MB 0.63 ng/ml (0.0-2.4); TROPONIN-I < 0.012 ng/ml (0.00-0.12)
[2016-09-20 20:30] VITALS: PULSE 69
--- NOTE | 2016-09-20 20:33 | RADRPT ---
Echocardiogram Report Patient Name: LIANA ESTRADA Gender: Male Date: 1970 Study Date: 20-Sep-2016 Hand Laminator: RAUL WILLIAMSON Location: 06 Ref. Physician: JESUSITA FRAUSTO Quality: Technically Difficult Study Procedures: Transthoracic echocardiogram with complete 2D, M-Mode, and doppler examination. Indications: Chest Pain. 2D/M Mode Doppler Measurement Value Normal Ranges Measurement Value Normal Ranges LVIDd 2D 4.4 3.5 - 5.6 cm DONTAE Vmax 1.6 cm2 LVIDs 2D 3.1 2.1 - 4.1 cm AV Peak Leonard 1.8 m/sec FS 2D 30.2 % AV Peak PG 12.0 mmHg LVPWd 2D 1.2 0.6 - 1.1 cm LVOT Peak Leonard 1.2 m/sec IVSd 2D 1.3 0.6 - 1.1 cm LVOT Peak PG 6.0 mmHg IVS/LVPW 2D 1.0 MV E Peak Leonard 0.9 m/sec AoR Diam 2D 3.2 2.0 - 3.7 cm MV A Peak Leonard 0.8 m/sec LA/Ao 2D 1 0 - 1 MV E/A 1.1 EDV 2D 85.2 cm3 MV Decel Time 250 msec ESV 2D 28.9 cm3 MV E/A 1.1 LA Dimen 2D 3.5 2.3 - 4.0 cm TR Peak Leonard 2.7 m/sec LVOT Diam 1.7 cm TR Peak PG 29.0 mmHg LVOT Area 2.3 cm2 RVSP 32.0 mmHg Findings Left Ventricle: Normal left ventricular systolic function. Normal left ventricular cavity size. Mild concentric left ventricular hypertrophy. Ejection fraction is visually estimated at 55 %. Tissue Doppler/Mitral Doppler indices are consistent with impaired relaxation (Stage I diastolic dysfunction). Right Ventricle: Normal right ventricular size. Normal right ventricular systolic function. Left Atrium: The left atrium is normal in size. Right Atrium: The right atrium is normal in size. Mitral Valve: Normal appearance of the mitral valve. Normal appearance and function of the mitral valve with trace physiologic regurgitation. Aortic Valve: Normal appearance of the aortic valve. No significant aortic stenosis or insufficiency. Tricuspid Valve: Normal appearance of the tricuspid valve. Estimated peak PA systolic pressure 32 mmHg. There is mild tricuspid regurgitation. Pulmonic Valve: Pulmonic valve not well visualized. Pericardium: Normal pericardium with no significant pericardial effusion. Aorta: Normal aortic root. IVC: Normal size and normal respiratory collapse consistent with normal right atrial pressure. Conclusions Normal left ventricular systolic function. Normal left ventricular cavity size. Mild concentric left ventricular hypertrophy. Ejection fraction is visually estimated at 55 %. Tissue Doppler/Mitral Doppler indices are consistent with impaired relaxation (Stage I diastolic dysfunction). Normal appearance of the mitral valve. Normal appearance and function of the mitral valve with trace physiologic regurgitation. Normal appearance of the tricuspid valve. Estimated peak PA systolic pressure 32 mmHg. There is mild tricuspid regurgitation. Electronically Signed By: Rainer Casarez 20-Sep-2016 20:33:07 -0700 Patient Name: LIANA ESTRADA Study Date: 20-Sep-2016 [id number]
[2016-09-20 20:40] VITALS: Ht 177.8 cm; Wt 98.0 kg
[2016-09-21] VITALS (11 sets, daily range): BP systolic 116–172; BP diastolic 73–88; PULSE 54–70; RESP 18–20
--- NOTE | 2016-09-21 01:03 | CONS ---
DATE OF ADMISSION: 09/20/2016 DATE OF CONSULTATION: 09/20/2016 REASON FOR CONSULTATION: Chest pain, assess for acute coronary syndrome. REQUESTING PHYSICIAN: Dr. Frausto from the hospitalist service. HISTORY OF PRESENT ILLNESS: Mr. Tavarez is a 46-year-old male with a history of hypertension, diab etes mellitus who initially presented with complaints of substernal chest pain described as a pins-a nd-needles sensation on his chest, occurring as he woke up from sleep as well as lower extremity leg numbness and shoulder pain. Upon arrival in the emergency department, temperature of 97.9, blood p ressure markedly elevated at 204/98, pulse 109, respiratory rate 20, saturating 99%. The patient's labs revealed a white cell count of 9, hemoglobin 15.2, platelet count of 256. Sodium of 133, potas sium 4.5, creatinine of 0.96, glucose of 447, AST 34, ALT 41, troponin negative. BNP 70. INR 0.83. Troponin negative. The patient underwent a chest x-ray revealing mild pulmonary vascular congesti on and a chest CT revealing minimal dependent atelectasis in the posterior lungs. No focal opacific ation. The patient's electrocardiogram revealed sinus tachycardia, rate of 105 with left axis devia tion, poor R-wave progression across anterior precordial leads. The patient subsequently admitted t o the floor and since admit to floor denies ongoing chest pain. PAST MEDICAL HISTORY: As above in HPI. MEDICATIONS CURRENTLY IN HOSPITAL: 1. Lantus. 2. Aspirin 81 mg daily. 3. Sublingual nitroglycerin p.r.n. 4. Tylenol p.r.n. 5. Morphine p.r.n. 6. Lovenox 40 mg subQ daily. 7. DuoNeb. 8. Atenolol 25 mg daily. 9. Benazepril 40 mg daily. 10. Hydralazine p.r.n. ALLERGIES: NO KNOWN DRUG ALLERGIES. SOCIAL HISTORY: No tobacco. Social ETOH. No illicit drug use. FAMILY HISTORY: No history of sudden cardiac or early CAD. REVIEW OF SYSTEMS: As above in HPI. CONSTITUTIONAL: No fevers, chills. PULMONARY: No current shortness of breath. CARDIOVASCULAR: Intermittent chest pain. GASTROINTESTINAL: No vomiting. GENITOURINARY: No hematuria. MUSCULOSKELETAL: Degenerative joint disease. PSYCHIATRIC: No documented psych history. NEUROLOGIC: No documented history of CVA. PHYSICAL EXAMINATION: VITAL SIGNS: Temperature 98.3, blood pressure 148/86, pulse 72, respiratory rate 20, saturating 97% . GENERAL: The patient is alert, awake, in no acute distress. NECK: JVP approximately 8 to 9 cm water. CHEST: Fair air movement throughout. HEART: Regular rate and rhythm. Normal S1, S2. I/ systolic murmur. Nondisplaced PMI. ABDOMEN: Positive bowel sounds, soft. EXTREMITIES: No pitting edema. Pulses 1+ bilaterally at posterior tibial. LABORATORY DATA: As above in HPI with most recently from today: Troponins negative x3. IMAGING STUDIES: As above in HPI. No further imaging studies for my review at this time. ELECTROCARDIOGRAM: As above in HPI. No further electrocardiograms for my review at this time. IMPRESSION: 1. Chest pain, assess for acute coronary syndrome. Somewhat atypical symptomatology for cardiac et iology at this time but with multiple cardiac risk factors, abnormal electrocardiogram and uncontrol led diabetes mellitus. 2. Hypertension initially with ____ urgency/emergency, now improved with oral antihypertensives. 3. Abnormal electrocardiogram with poor R-wave progression across anterior precordial leads, assess for acute coronary syndrome. 4. Diabetes mellitus with uncontrolled blood sugars. 5. Hyponatremia. 6. Shoulder pain. 7. Leg numbness, rule out any possible neurologic syndrome. RECOMMENDATIONS: 1. At this time would maintain the patient on telemetry monitoring to follow rhythm and rate closel y. 2. Would check serial EKGs, assess for any significant ongoing changes. An EKG in the morning, EKG for any complaint of chest pain or change in rhythm. 3. Continue the patient's current atenolol and benazepril for control of blood pressure. 4. Continue the patient's aspirin prophylaxis for cardiovascular events. 5. Would give patient sublingual nitroglycerin for recurring episodes of chest pain. 6. Follow up patient's 2D echo, and given the patient's cardiac risk factors, uncontrolled blood shaver gars, believe this patient will benefit from further risk stratification as inpatient, thus will candy edule patient for Lexiscan stress test to take place in the morning. Thank you for allowing me to take part in the care of this patient. I will continue to follow along very closely with you with further recommendations to be made as the patient progresses through his inpatient hospital clinical course. Dictated By: MADAY BUNN/AUBREE Conf#: [id number] DID#: [id number] CC: MICHELLE TRAYLOR MD; JESUSITA FRAUSTO MD;*[facility]*
[2016-09-21 06:46] LABS: ADD SCAN DIFF NO
[2016-09-21 06:55] LABS: BASOPHIL # 0.1 10^3/ul (0.0-0.1); EOSINOPHILS # 0.3 10^3/ul (0.0-0.5); EOSINOPHILS % 3.6 % (0.0-7.0); HEMATOCRIT 43.2 % (42.0-52.0); HEMOGLOBIN 14.7 g/dl (14.0-18.0); LYMPHOCYTES # 3.5 10^3/ul (0.8-2.9); LYMPHOCYTES % 43.9 % (15.0-51.0); MEAN CORPUSCULAR VOLUME 91.1 fl (82.0-101.0); MEAN PLATELET VOLUME 10.3 fl (7.4-10.4); MONOCYTE # 0.6 10^3/ul (0.3-0.9); MONOCYTES % 7.8 % (0.0-11.0); NEUTROPHIL # 3.5 10^3/ul (1.6-7.5); NEUTROPHILS % 43.5 % (39.0-77.0); PLATELET COUNT 224 10^3/UL (140-415); RED BLOOD COUNT 4.74 10^6/ul (4.70-6.10); RED CELL DISTRIBUTION WIDTH 12.6 % (11.5-14.5); WHITE BLOOD COUNT 8.1 10^3/ul (4.8-10.8)
[2016-09-21 07:10] LABS: ALBUMIN 3.3 g/dl (3.3-4.9); ALBUMIN/GLOBULIN RATIO 1.1; BILIRUBIN,INDIRECT 0.5 mg/dl (0-1.1); BILIRUBIN,TOTAL 0.5 mg/dl (0.2-1.3); CALCIUM 8.8 mg/dl (8.4-10.2); CREATININE 0.89 mg/dl (0.61-1.24); MAGNESIUM 1.9 mg/dl (1.7-2.5); POTASSIUM 4.2 mmol/L (3.5-5.1); TOTAL PROTEIN 6.3 g/dl (6.1-8.1)
[2016-09-21 07:39] LABS: THYROID STIMULATING HORMONE 1.27 MIU/L (0.465-4.680)
[2016-09-21] MEDS: INSULIN ASPART [NOVOLOG] 3 ML PEN SC SCH ×8 (07:55→20:49)
[2016-09-21] MEDS: ASPIRIN 81 MG TAB PO SCH (08:14)
[2016-09-21] MEDS: BENAZEPRIL 40 MG TAB PO SCH (08:14)
[2016-09-21] MEDS: ATENOLOL 25 MG TAB PO SCH (08:14)
[2016-09-21] MEDS ORDERED: REGADENOSON 0.4 MG/5 ML SYG ONE (10:45)
--- NOTE | 2016-09-21 11:56 | CONS ---
Date/Time of Note Date/Time of Note DATE: 09/21/16 TIME: 11:53 Assessment/Plan Assessment/Plan Chief Complaint/Hosp Course IMPRESSION: 1. Chest pain, assess for acute coronary syndrome. Somewhat atypical symptomatology for cardiac etiology at this time but with multiple cardiac risk factors, abnormal electrocardiogram and uncontrolled diabetes mellitus.- negative trop x 3/NL EF by echo this admit 2. Hypertension initially with hypertensive urgency/emergency, now improved with oral antihypertensives. 3. Abnormal electrocardiogram with poor R-wave progression across anterior precordial leads, assess for acute coronary syndrome. 4. Diabetes mellitus with uncontrolled blood sugars. 5. Hyponatremia. 6. Shoulder pain. 7. Leg numbness, rule out any possible neurologic syndrome. Recc: -Tele -Serial ecg's -Continue BB/ACEI -Contiue asa -Lexiscan stress test today Problems: Consultation Date/Type/Reason Admit Date/Time Sep 20, 2016 at 03:32 Initial Consult Date 09/20/16 Type of Consultation: cardiology Reason for Consultation chest pain Referring Provider: JESUSITA FRAUSTO MD Exam/Review of Systems Vital Signs Vitals Vital Signs Date Time Temp Pulse Resp B/P Pulse Ox O2 Delivery O2 Flow Rate FiO2 09/21/16 08:34 67 09/21/16 07:48 97.5 18 171/88 98 09/20/16 17:58 Room Air Intake and Output 09/20/16 09/20/16 09/21/16 15:00 23:00 07:00 Intake Total 280 ml 1060 ml Balance 280 ml 1060 ml Exam Review of Systems: CONSTITUTIONAL: No fevers, chills. PULMONARY: No sob CARDIOVASCULAR:ongoing chest pain/palpitations GASTROINTESTINAL: No nausea/vomiting. GENITOURINARY: No hematuria/dysuria. MUSCULOSKELETAL: No myagias/arthalgias. PSYCHIATRIC: The patient denies depression. NEUROLOGIC: No weakness Constitutional: alert, oriented Psych: no complaints Head: normocephalic ENMT: mucosa pink and moist Neck: jvd, supple Respiratory: diminished breath sounds (at bases/B) Cardiovascular: regular rate and rhythm Gastrointestinal: non-tender, soft Musculoskeletal: muscle tone (normal) Extremities: edema Neurological: other (No focal deficits) Results Result Diagram: 09/21/16 0625 09/21/16 0625 Results 24 hrs Laboratory Tests Test 09/20/16 12:00 09/20/16 12:55 09/20/16 18:50 09/20/16 20:52 Bedside Glucose 299 H 214 Hemoglobin A1c 10.5 H Creatine Kinase 94 106 Creatine Kinase Index 0.8 0.6 Creatinine Kinase MB (Mass) 0.71 0.63 Troponin I < 0.012 < 0.012 Test 09/21/16 02:01 09/21/16 06:25 09/21/16 08:07 09/21/16 09:03 Bedside Glucose 258 H 232 H 238 H White Blood Count 8.1 Red Blood Count 4.74 Hemoglobin 14.7 Hematocrit 43.2 Mean Corpuscular Volume 91.1 Mean Corpuscular Hemoglobin 31.0 Mean Corpuscular Hemoglobin Concent 34.0 Red Cell Distribution Width 12.6 Platelet Count 224 Mean Platelet Volume 10.3 Neutrophils % 43.5 Lymphocytes % 43.9 Monocytes % 7.8 Eosinophils % 3.6 Basophils % 1.0 Nucleated Red Blood Cells % 0.0 Neutrophils # 3.5 Lymphocytes # 3.5 H Monocytes # 0.6 Eosinophils # 0.3 Basophils # 0.1 Nucleated Red Blood Cells # 0.0 Sodium Level 135 Potassium Level 4.2 Chloride Level 101 Carbon Dioxide Level 31 Anion Gap 7 L Blood Urea Nitrogen 12 Creatinine 0.89 Glucose Level 248 #H Calcium Level 8.8 Magnesium Level 1.9 Total Bilirubin 0.5 Direct Bilirubin 0.00 Indirect Bilirubin 0.5 Aspartate Amino Transf (AST/SGOT) 26 Alanine Aminotransferase (ALT/SGPT) 44 Alkaline Phosphatase 100 # Total Protein 6.3 # Albumin 3.3 Globulin 3.00 Albumin/Globulin Ratio 1.10 Triglycerides Level 600 H Cholesterol Level 224 H LDL Cholesterol, Calculated 76 HDL Cholesterol 28 Cholesterol/HDL Ratio 8.0 Thyroid Stimulating Hormone (TSH) 1.270 Medications Medications Current Medications Lorazepam (Ativan) 0.5 mg Q6H PRN IV ANXIETY; Start 09/20/16 at 09:00 Ondansetron HCl (Zofran Inj) 4 mg Q6H PRN IV NAUSEA AND/OR VOMITING; Start at 09:00 Aspirin (Aspirin) 81 mg DAILY PO Last administered on 09/21/16t 08:14; Admin Dose 81 MG; Start 09/20/16 at 09:00 Nitroglycerin (Nitroglycerin (Sl Tab) 0.4 Mg) 1 tab Q5M PRN SL CHEST PAIN; Start 09/20/16 at 09:00 Acetaminophen (Tylenol Tab) 650 mg Q6H PRN PO PAIN LEVEL 1-3 OR FEVER Last administered on 09/20/16 22:46; Admin Dose 650 MG; Start 09/20/16 at 09:00 Morphine Sulfate (morphine) 2 mg Q4H PRN IV PAIN LEVEL 7-10; Start 09/20/16 at 09:00 Enoxaparin Sodium (Lovenox) 40 mg DAILY SC Last administered on 09/20/16 09:48 ; Admin Dose 40 MG; Start 09/20/16 at 09:00 Atenolol (Tenormin) 25 mg DAILY PO Last administered on 09/21/16 08:14; Admin Dose 25 MG; Start 09/20/16 at 09:00 Benazepril HCl (Lotensin) 40 mg DAILY PO Last administered on 09/21/16 08:14; Admin Dose 40 MG; Start 09/20/16 at 09:00 Hydralazine HCl (Apresoline) 10 mg Q4H PRN IV SBP > 160; Start 09/20/16 at 09: 00 Miscellaneous Information 1 ea NOTE XX ; Start 09/20/16 at 09:00 Glucose (Glutose) 15 gm Q15M PRN PO DECREASED GLUCOSE; Start 09/20/16 at 09:00 Glucose (Glutose) 22.5 gm Q15M PRN PO DECREASED GLUCOSE; Start 09/20/16 at 09: 00 Dextrose (D50w Syringe) 25 ml Q15M PRN IV DECREASED GLUCOSE; Start 09/20/16 at 09:00 Dextrose (D50w Syringe) 50 ml Q15M PRN IV DECREASED GLUCOSE; Start 09/20/16 at 09:00 Glucagon (Glucagen) 1 mg Q15M PRN IM DECREASED GLUCOSE; Start 09/20/16 at 09:00 Glucose (Glutose) 15 gm Q15M PRN BUCCAL DECREASED GLUCOSE; Start 09/20/16 at 09 :00 Insulin Glargine (Lantus) 24 unit DAILY@20 SC Last administered on 09/20/16 20 :55; Admin Dose 24 UNIT; Start 09/20/16 at 20:00 Insulin Aspart (Novolog Insulin Pen) NOVOLOG *MILD* ALGORI... Q4 SC Last administered on 09/21/16t 09:05; Admin Dose 3 UNIT; Start 09/21/16 at 09:00 MADAY EATON Sep 21, 2016 11:56
--- NOTE | 2016-09-21 12:26 | CARRPT ---
DATE OF PROCEDURE: 09/21/2016 LEXISCAN CARDIOLITE STRESS, ELECTROCARDIOGRAM PORTION REASON FOR STRESS TESTING: Chest pain, assess for ischemia. BASELINE VITAL SIGNS AND ELECTROCARDIOGRAM: Pulse 62, blood pressure 191/78. Electrocardiogram rev eals normal sinus rhythm, rate of 62, normal axis, normal intervals, with T-wave flattening in the i nferior and lateral leads. PROCEDURE: The patient underwent standard Lexiscan infusion protocol for 10 seconds, followed by ra diolabeled tracer. The patient's test was stopped due to completion of protocol. Maximal achieved blood pressure during the test was 191/78. Maximum heart rate during the test was 95. ELECTROCARDIOGRAM FINDINGS: The patient did not develop any new Lexiscan-induced ST or T-wave florence es from baseline abnormalities or documented PVCs. SYMPTOMS: The patient had no complaints of chest pain or shortness of breath during stress testing. IMPRESSION: 1. No Lexiscan-induced ST or T-wave changes from baseline abnormalities diagnostic for ischemia. 2. No complaints of chest pain or shortness of breath during stress testing. 3. No documented premature ventricular contractions during stress testing. 4. Report of nuclear images to follow in a separate dictation. Dictated By: MADAY BUNN/AUBREE Conf#: [id number] DID#: [id number] CC: JESUSITA FRAUSTO MD;*End*
--- NOTE | 2016-09-21 12:34 | RADRPT ---
Vent Rate: 57 bpm RR Interval: 0 msec MI Interval: 126 msec QRS Duration: 82 msec QT Interval: 426 msec QTC Interval: 414 msec P-R-T [place]: 48 - -26 - 60 degrees Sinus bradycardia Nonspecific T wave abnormality Abnormal ECG Electronically Signed By: Chip Rm [id number]
--- NOTE | 2016-09-21 12:55 | PN ---
Date/Time of Note Date/Time of Note DATE: 09/21/16 TIME: 12:52 Assessment/Plan VTE Prophylaxis VTE Prophylaxis Intervention: LMWH Lines/Catheters IV C[facility]ter Type [facility] Saline Lock Assessment/Plan Chief Complaint/Hosp Course Assessment and plan 1. Chest pain. Rule out ACS. Troponins negative. Echocardiogram ejection fraction of 55% with stage I diastolic dysfunction. Awaiting final results of stress test. Follow-up with rail transit operator recommendations. 2. Hypertensive urgency. Continue on antihypertensives and adjust as needed. Stable at present. 3. Diabetes. A1c at 10.5. clinical informatics educator following. Will adjust insulin regimen. Of note patient did report that at home he did have uncontrolled blood glucose with episodes of hypoglycemia. Will monitor levels for now. Disposition and plan: Follow-up on stress test. Adjust insulin regimen for better control. Discharged in medically stable Discussed plan of care with Problems: Subjective 24 Hr Interval Summary Free Text/Dictation Patient for stress test Exam/Review of Systems Vital Signs Vitals Vital Signs Date Time Temp Pulse Resp B/P Pulse Ox O2 Delivery O2 Flow Rate FiO2 09/21/16 08:34 67 09/21/16 07:48 97.5 18 171/88 98 09/20/16 17:58 Room Air Intake and Output 09/20/16 09/20/16 09/21/16 15:00 23:00 07:00 Intake Total 280 ml 1060 ml Balance 280 ml 1060 ml Exam Patient for stress test Results Result Diagram: 09/21/16 0625 09/21/16 0625 Results 24 hrs Laboratory Tests Test 09/20/16 12:55 09/20/16 18:50 09/20/16 20:52 09/21/16 02:01 Hemoglobin A1c 10.5 H Creatine Kinase 94 106 Creatine Kinase Index 0.8 0.6 Creatinine Kinase MB (Mass) 0.71 0.63 Troponin I < 0.012 < 0.012 Bedside Glucose 214 258 H Test 09/21/16 06:25 09/21/16 08:07 09/21/16 09:03 White Blood Count 8.1 Red Blood Count 4.74 Hemoglobin 14.7 Hematocrit 43.2 Mean Corpuscular Volume 91.1 Mean Corpuscular Hemoglobin 31.0 Mean Corpuscular Hemoglobin Concent 34.0 Red Cell Distribution Width 12.6 Platelet Count 224 Mean Platelet Volume 10.3 Neutrophils % 43.5 Lymphocytes % 43.9 Monocytes % 7.8 Eosinophils % 3.6 Basophils % 1.0 Nucleated Red Blood Cells % 0.0 Neutrophils # 3.5 Lymphocytes # 3.5 H Monocytes # 0.6 Eosinophils # 0.3 Basophils # 0.1 Nucleated Red Blood Cells # 0.0 Sodium Level 135 Potassium Level 4.2 Chloride Level 101 Carbon Dioxide Level 31 Anion Gap 7 L Blood Urea Nitrogen 12 Creatinine 0.89 Glucose Level 248 #H Calcium Level 8.8 Magnesium Level 1.9 Total Bilirubin 0.5 Direct Bilirubin 0.00 Indirect Bilirubin 0.5 Aspartate Amino Transf (AST/SGOT) 26 Alanine Aminotransferase (ALT/SGPT) 44 Alkaline Phosphatase 100 # Total Protein 6.3 # Albumin 3.3 Globulin 3.00 Albumin/Globulin Ratio 1.10 Triglycerides Level 600 H Cholesterol Level 224 H LDL Cholesterol, Calculated 76 HDL Cholesterol 28 Cholesterol/HDL Ratio 8.0 Thyroid Stimulating Hormone (TSH) 1.270 Bedside Glucose 232 H 238 H Medications Medications Current Medications Lorazepam (Ativan) 0.5 mg Q6H PRN IV ANXIETY; Start 09/20/16 at 09:00 Ondansetron HCl (Zofran Inj) 4 mg Q6H PRN IV NAUSEA AND/OR VOMITING; Start at 09:00 Aspirin (Aspirin) 81 mg DAILY PO Last administered on 09/21/16 08:14; Admin Dose 81 MG; Start 09/20/16 at 09:00 Nitroglycerin (Nitroglycerin (Sl Tab) 0.4 Mg) 1 tab Q5M PRN SL CHEST PAIN; Start 09/20/16 at 09:00 Acetaminophen (Tylenol Tab) 650 mg Q6H PRN PO PAIN LEVEL 1-3 OR FEVER Last administered on 09/20/16 22:46; Admin Dose 650 MG; Start 09/20/16 at 09:00 Morphine Sulfate (morphine) 2 mg Q4H PRN IV PAIN LEVEL 7-10; Start 09/20/16 at 09:00 Enoxaparin Sodium (Lovenox) 40 mg DAILY SC Last administered on 09/20/16 09:48 ; Admin Dose 40 MG; Start 09/20/16 at 09:00 Atenolol (Tenormin) 25 mg DAILY PO Last administered on 09/21/16 08:14; Admin Dose 25 MG; Start 09/20/16 at 09:00 Benazepril HCl (Lotensin) 40 mg DAILY PO Last administered on 09/21/16 08:14; Admin Dose 40 MG; Start 09/20/16 at 09:00 Hydralazine HCl (Apresoline) 10 mg Q4H PRN IV SBP > 160; Start 09/20/16 at 09: 00 Miscellaneous Information 1 ea NOTE XX ; Start 09/20/16 at 09:00 Glucose (Glutose) 15 gm Q15M PRN PO DECREASED GLUCOSE; Start 09/20/16 at 09:00 Glucose (Glutose) 22.5 gm Q15M PRN PO DECREASED GLUCOSE; Start 09/20/16 at 09: 00 Dextrose (D50w Syringe) 25 ml Q15M PRN IV DECREASED GLUCOSE; Start 09/20/16 at 09:00 Dextrose (D50w Syringe) 50 ml Q15M PRN IV DECREASED GLUCOSE; Start 09/20/16 at 09:00 Glucagon (Glucagen) 1 mg Q15M PRN IM DECREASED GLUCOSE; Start 09/20/16 at 09:00 Glucose (Glutose) 15 gm Q15M PRN BUCCAL DECREASED GLUCOSE; Start 09/20/16 at 09 :00 Insulin Aspart (Novolog Insulin Pen) NOVOLOG *MILD* ALGORI... Q4 SC Last administered on 09/21/16 09:05; Admin Dose 3 UNIT; Start 09/21/16 at 09:00 Insulin Glargine (Lantus) 30 unit DAILY@20 SC ; Start 09/21/16 at 20:00 KEATON ROSA Sep 21, 2016 12:55
--- NOTE | 2016-09-21 13:30 | RADRPT ---
PROCEDURE: Lexiscan myocardial perfusion study CLINICAL INDICATION: 46 -year-old patient complaining of chest pain. TECHNIQUE: Lexiscan 0.4 mg intravenously separate acquisition gated myocardial perfusion SPECT usi ng Tc 99m Myoview 31.8 mCi intravenously at stress and Tc-99m Myoview, 10.6 mCi intravenously at res t was performed using the rest/stress sequence. Poststress Myoview SPECT images were obtained in th e supine position. COMPARISON: No prior studies. FINDINGS: Perfusion images reveal no evidence of perfusion defects. Lexiscan post stress gated SPECT images demonstrate mild hypokinesis of the left ventricle. IMPRESSION: 1. No evidence of perfusion defects. 2. Mild hypokinesis of the left ventricle 3. The left ventricle ejection fraction at stress is 43%. A call report was made to Dr. Casarez at 01:28 p.m. on September 21, 2016. RPTAT: HH .Della Gutierrez MD, Date Time Electronically viewed and signed by .Della Gutierrez MD, on 09/21/2016 13:29 .L/
[2016-09-21] MEDS: ENOXAPARIN 40 MG/0.4 ML SYG SC SCH (13:34)
[2016-09-21] MEDS ORDERED: INSULIN GLARGINE [LANtus] 3 ML PEN SC SCH (20:00)
[2016-09-22 00:24] VITALS: PULSE 57
[2016-09-22] MEDS: INSULIN ASPART [NOVOLOG] 3 ML PEN SC SCH ×6 (01:00→12:02)
[2016-09-22 04:15] VITALS: PULSE 56
[2016-09-22 08:23] VITALS: PULSE 63
[2016-09-22] MEDS: BENAZEPRIL 40 MG TAB PO SCH (08:43)
[2016-09-22] MEDS: ASPIRIN 81 MG TAB PO SCH (08:43)
[2016-09-22] MEDS: ENOXAPARIN 40 MG/0.4 ML SYG SC SCH (08:43)
[2016-09-22] MEDS: ATENOLOL 25 MG TAB PO SCH (08:43)
[2016-09-22 12:08] VITALS: PULSE 77
== END 2016-09-22 12:30 | disposition left against medical advice (07) | DRG 313 ==
LOC: E/R 21:28 → TEL 09-20 03:32
PROVIDERS: ADMIT Internal Medicine; ATTEND Internal Medicine
PROC: 4A043R1 Measurement of Venous Saturation, Peripheral, Percutaneous Approach (ICD-10-PCS; principal; 2016-09-20)
DX: R07.9 Chest pain, unspecified (principal); E11.65 Type 2 diabetes mellitus with hyperglycemia; I16.0 Hypertensive urgency; E87.1 Hypo-osmolality and hyponatremia; R94.31 Abnormal electrocardiogram [ECG] [EKG]; R20.0 Anesthesia of skin; Z91.14 Patient's other noncompliance with medication regimen
CPT/HCPCS: 36415; 71010; 71260; 74177; 78452; 80053; 80061; 82550; 82553; 82803; 82962; 83036; 83735; 83880; 84443; 84484; 85025; 85610; 85730; 93005; 93017; 93306; 96361; 96372; 96374; 96375; A9500; A9505; J1650; J1815; J2270; J2405; J2785; J7030; Q9967

== ENCOUNTER 2016-09-27 15:05 | Outpatient (CLI) | payer OTHER ==
[~2016-09-27] VITALS: Ht 177.8 cm; Wt 99.1 kg
[~2016-09-27 15:05] MED LIST changes: -ACET-2047 PO; -ALBU18HF INHALATION; -ATEN-138; +ATEN-51 PO; -BEN25 PO; -BENA40TA41; +BENA40TA41 PO; -CEPH-443 PO; -FAMO-18 PO; -HYDR-3498 PO; -IBUP-1542 PO; -NAPR-688 PO; -PRED20TA PO; -TRAM-40 PO
[2016-09-27 15:11] VITALS: BP 197/107; PULSE 61; RESP 18; Ht 177.8 cm; Wt 99.1 kg
--- NOTE | 2016-09-27 16:12 | PN ---
Date/Time of Note Date/Time of Note DATE: 09/27/16 TIME: 16:06 Outpatient Progress Note Chief Complaint Hypertension/chest pain/diabetes HPI Hypertension/patient has a hypertension, patient was recently hospitalized with a chest pain, at present patient does not have any chest pain, no headache or dizziness, no local focal weakness, patient states that his blood pressure at home is normal, Patient blood pressure at the clinic is 197 and recheck blood pressure systolic is 180, Chest pain/no chest pain at present, no PND orthopnea or palpitation, Diabetes/no pleuritic supple due to hypoglycemia, gastroparesis, Morbid obesity/patient slightly obese, no history of high thyroid problem, Review of Systems Const: No Fever, no chills, no Wt. loss, no Fatigue, normal appetite, no diaphoresis. Eyes: No pain, no discharge, no redness, no visual change, no foreign body. ENT: No pain, no bleeding, no congestion, no sore throat, no dysphagia, no discharge or rhinitis. Lymph: No adenopathy, no tender nodes, no lymphedema. Resp: No SOB, no cough, no sputum, no wheezing, no chest pain. CV: No chest pain, no palpitaions, no JENNINGS, no PND, no edema. GI: Normal appetite, no pain, no nausea, no vomiting, no diarrhea, no blood, no constipation. : No frequency, no urgency, no dysuria, no hematuria, no flank pain, no discharge, no bleeding. Musc: No bone/joint pain, no back pain, no neck pain, no knee pain, no restricted ROM. Skin: No rash, no skin lesions, no erythema, no laceration, no bruising, no pruritus. Neuro: No URIOSTEGUI, no dizziness, no syncope, no seizure, no focal-weakness. Endo: No polyuria, no polydypsia, no dry-skin, no temp-intolerance. Psych: No hallucinations, no depression, no anxiety, no suicidal ideation. Ext: No edema, no pain, no ulcer, no weakness. Physical Exam Vital Signs Date Time Temp Pulse Resp B/P Pulse Ox O2 Delivery O2 Flow Rate FiO2 09/27/16 15:11 98.3 61 18 197/107 95 Room Air General Appearance: A 46 year-old male who appears well-developed, well- nourished, in no acute distress. HEENT: Head normocephalic, atraumatic. Pupils equal, round, reactive to light and accommodate. Sclerae are no jaundice. Nasal turbinates pink without erythema or nasal discharge. Mucous membranes pink and moist without lesions. Oropharynx clear without any exudate or discharge. NECK: Supple. Trachea midline, No thyromegaly, No cervical lymphadenopathy, No mass, No carotid bruits, No JVD, Carotid pulses 2+ bilaterally. PULMONARY: Clear to auscultaion bilaterally, No retractions, Chest expansion symmetric bilaterally, no rales, no ronchi, no dulness on percussion. CARDIAC: Normal SI and S2, Regular rate and rythm, no murmur, gallop, or rub. GASTROINTESTINAL: Abdomen is soft, non-tender, Non Rigid, No distention, Positive bowel sounds x4 quadrants, Liver normal. SKIN: Warm, dry, no rash, no bruise, no echmosis. EXTREMITIES: Bilateral lower extremities normal, no edema, no phlabitus, pulse palpable, no contracture. MUSCULOSKELETAL: Spine Normal, Non-tender, Normal range of motion, No swelling, no deformity, no clubbing, or cyanosis, the patient has no edema to bilateral lower extremities, dorsalis pedis pulses palpable bilaterally. NEUROLOGIC: The patient is awake, alert, oriented, responding to yes/no questions appropriately, moving all extremities, cranial nerve intact, normal strenght, normal power, normal coordination, normal gait. Allergies Coded Allergies: No Known Allergy (Verified , 09/20/16) PMH Diabetes/hypertension/recent admission with chest pain, and biliary stasis, Social Hx No smoking no drinking, Family Hx Noncontributory Patient History: Cardiac disorder 33 FATHER 32 MOTHER Endocrine and metabolic disease 33 FATHER 32 MOTHER Hypertension 33 FATHER 32 MOTHER Assessment/Plan Impression Hypertension uncontrolled/chest pain resolved/diabetes/obesity/abdominal discomfort resolving Plan Patient education done, patient encouraged to follow with the GI, Patient encouraged to follow with the primary care physician, Patient blood pressure significantly elevated, patient advised to increase atenolol -100 mg daily, and bring the blood pressure records to the office, and will check the equipment and the reading, If patient has a severe headache to go to the emergency room immediately, Patient's advised to control the blood sugar, hypoglycemic education done, Patient to follow with the GI, Medications Home Meds Reported Medications Benazepril Hcl* (Benazepril Hcl*) 40 Mg Tablet, 40 MG PO DAILY, #30 TAB 09/20/16 Atenolol* (Atenolol*) 25 Mg Tablet, 25 MG PO DAILY, #30 TAB 09/20/16 Insulin Lispro (Humalog) 100 U/Ml Cartridge, 40 UNITS SC AC BREAKFAST DINNER, EA 06/22/15 Insulin Glargine* (Lantus*) 100 Unit/Ml Soln, 60 UNIT SC AC BREAKFAST DINNER, # 1 VIAL 06/22/15 Discontinued Scripts Ibuprofen* (Ibuprofen*) 600 Mg Tablet, 600 MG PO Q6, #20 TAB Prov:PATTI ANGLIN MD 07/23/16 Tramadol Hcl* (Ultram*) 50 Mg Tablet, 50 MG PO Q6H Y for PAIN, #20 TAB Prov:PATTI ANGLIN MD 07/23/16 Acetaminophen* (Acetaminophen*) 650 Mg Tablet, 650 MG PO Q6H Y for PAIN AND OR ELEVATED TEMP, #20 TAB Prov:ALLIE GRAHAM 04/18/16 Ibuprofen* (Ibuprofen*) 600 Mg Tablet, 600 MG PO Q8, #20 TAB [facility] 04/18/16 Cephalexin* (Keflex*) 500 Mg Capsule, 500 MG PO QID for 5 Days, CAP Prov[facility] 04/18/16 Albuterol Sulfate* (Ventolin HFA*) 18 Gm Hfa.aer.ad, 2 PUFF INHALATION Q6H, #1 INHALER 0 Refills Prov:MELI MANN PA-C 01/13/16 Famotidine* (Pepcid*) 20 Mg Tablet, 20 MG PO BID for 4 Days, #8 TAB 0 Refills Prov:MELI MANN PA-C 01/13/16 Diphenhydramine Hcl* (Benadryl*) 25 Mg Cap, 25 MG PO Q6 for ITCHING for 7 Days, #30 CAP 0 Refills Prov:MELI MANN PA-C 01/13/16 Prednisone* (Prednisone*) 20 Mg Tab, 40 MG PO DAILY for 4 Days, #8 TAB 0 Refills Prov:MELI MANN PA-C 01/13/16 Hydrocodone Bit-Acetaminophen* ([place]*) 5-325 Mg Tab, 1 TAB PO Q4H Y for SEVERE PAIN LEVEL 7-10, #5 TAB Prov:VIJAYA HUYNH DO 11/03/15 Naproxen* (Naproxen*) 500 Mg Tablet, 500 MG PO BID, #20 TAB Prov:VIJAYA HUYNH DO 11/03/15 FABIANA ADAN MD September 27, 2016 16:12
== END 2016-09-27 16:37 | disposition home or self-care (01) ==
LOC: DCC 15:05
PROVIDERS: ATTEND Internal Medicine
DX: I10 Essential (primary) hypertension (principal); R07.9 Chest pain, unspecified; E11.9 Type 2 diabetes mellitus without complications; R10.9 Unspecified abdominal pain; E66.9 Obesity, unspecified

== ENCOUNTER 2016-10-09 10:47 | Outpatient (CLI) | payer OTHER ==
[~2016-10-09] VITALS: Ht 177.8 cm; Wt 99.1 kg
[2016-10-09 11:18] VITALS: BP 159/77; PULSE 60; RESP 16; Ht 177.8 cm; Wt 99.1 kg
--- NOTE | 2016-10-09 11:57 | PN ---
Date/Time of Note Date/Time of Note DATE: 10/09/16 TIME: 11:52 Outpatient Progress Note Chief Complaint Diabetes/hypertension/right-sided rib pain HPI Diabetes/no polydipsia polyuria or hypoglycemia, patient blood sugar has been between 100 and in between 250, but patient has couple of times a blood sugar of 50 since 40s, patient has reduced Humalog from 40 units breakfast lunch and dinner to 20 units, and patient is adjusting accordingly, Hypertension/patient blood pressure slightly elevated, according to patient blood pressure is fair at home, no headache or dizziness, Right-sided rib pain, patient has slight chest pain, which is right lower rib cage, no pain in right upper quadrant, no nausea or vomiting, patient pain also persists when patient turns around, and it gets aggravated with local pressure and turning around, no precordial chest pain,, Review of Systems Const: No Fever, no chills, no Wt. loss, no Fatigue, normal appetite, no diaphoresis. Eyes: No pain, no discharge, no redness, no visual change, no foreign body. ENT: No pain, no bleeding, no congestion, no sore throat, no dysphagia, no discharge or rhinitis. Lymph: No adenopathy, no tender nodes, no lymphedema. Resp: No SOB, no cough, no sputum, no wheezing, right sided chest pain mostly in her lower ribs pain,. CV: No chest pain, no palpitaions, no JENNINGS, no PND, no edema. GI: Normal appetite, no pain, no nausea, no vomiting, no diarrhea, no blood, no constipation. : No frequency, no urgency, no dysuria, no hematuria, no flank pain, no discharge, no bleeding. Musc: No bone/joint pain, no back pain, no neck pain, no knee pain, no restricted ROM. Skin: No rash, no skin lesions, no erythema, no laceration, no bruising, no pruritus. Neuro: No URIOSTEGUI, no dizziness, no syncope, no seizure, no focal-weakness. Endo: No polyuria, no polydypsia, no dry-skin, no temp-intolerance. Psych: No hallucinations, no depression, no anxiety, no suicidal ideation. Ext: No edema, no pain, no ulcer, no weakness. Physical Exam Vital Signs Date Time Temp Pulse Resp B/P Pulse Ox O2 Delivery O2 Flow Rate FiO2 10/09/16 11:18 98.3 60 16 159/77 97 Room Air General Appearance: A 46 year-old male who appears well-developed, well- nourished, in no acute distress. HEENT: Head normocephalic, atraumatic. Pupils equal, round, reactive to light and accommodate. Sclerae are no jaundice. Nasal turbinates pink without erythema or nasal discharge. Mucous membranes pink and moist without lesions. Oropharynx clear without any exudate or discharge. NECK: Supple. Trachea midline, No thyromegaly, No cervical lymphadenopathy, No mass, No carotid bruits, No JVD, Carotid pulses 2+ bilaterally. PULMONARY: Clear to auscultaion bilaterally, No retractions, Chest expansion symmetric bilaterally, no rales, no ronchi, no dulness on percussion. CARDIAC: Normal SI and S2, Regular rate and rythm, no murmur, gallop, or rub. No S3 no S4, GASTROINTESTINAL: Abdomen is soft, non-tender, Non Rigid, No distention, Positive bowel sounds x4 quadrants, Liver normal. SKIN: Warm, dry, no rash, no bruise, no echmosis. EXTREMITIES: Bilateral lower extremities normal, no edema, no phlabitus, pulse palpable, no contracture. MUSCULOSKELETAL: Patient has a right lower rib pain mostly just about right upper quadrant, minimal tenderness,, spine Normal, Non-tender, Normal range of motion, No swelling, no deformity, no clubbing, or cyanosis, the patient has no edema to bilateral lower extremities, dorsalis pedis pulses palpable bilaterally. NEUROLOGIC: The patient is awake, alert, oriented, responding to yes/no questions appropriately, moving all extremities, cranial nerve intact, normal strenght, normal power, normal coordination, normal gait. Allergies Coded Allergies: No Known Allergy (Verified , 09/20/16) Social Hx No change Family Hx No change Patient History: Cardiac disorder 33 FATHER 32 MOTHER Endocrine and metabolic disease 33 FATHER 32 MOTHER Hypertension 33 FATHER 32 MOTHER Assessment/Plan Impression Diabetes poorly controlled/hypertension/right side rib pain, Plan Patient education done about diabetes, discussed about hyper and hypoglycemia, and possible complication, Patient to bring all readings to primary care physician, and monitor blood sugar closely, Patient also need to control the blood pressure, and monitor blood pressure closely, Patient encouraged to follow with the primary care physician, Medications Home Meds Reported Medications Benazepril Hcl* (Benazepril Hcl*) 40 Mg Tablet, 40 MG PO DAILY, #30 TAB 09/20/16 Atenolol* (Atenolol*) 25 Mg Tablet, 25 MG PO DAILY, #30 TAB 09/20/16 Insulin Lispro (Humalog) 100 U/Ml Cartridge, 40 UNITS SC AC BREAKFAST DINNER, EA 06/22/15 Insulin Glargine* (Lantus*) 100 Unit/Ml Soln, 60 UNIT SC AC BREAKFAST DINNER, # 1 VIAL 06/22/15 FABIANA ADAN MD October 09, 2016 11:57
== END 2016-10-09 16:52 | disposition home or self-care (01) ==
LOC: DCC 10:47
PROVIDERS: ATTEND Internal Medicine
DX: E11.65 Type 2 diabetes mellitus with hyperglycemia (principal); I10 Essential (primary) hypertension; R07.81 Pleurodynia

== ENCOUNTER 2017-02-24 17:42 | Emergency (ER) | END 2017-02-24 22:46 | disposition home or self-care (01) | DX: E11.65 Type 2 diabetes mellitus with hyperglycemia (principal); I10 Essential (primary) hypertension; Z79.4 Long term (current) use of insulin | CPT/HCPCS: 36415; 74176; 80053; 81001; 82962; 83690; 85025; 96372; 96374; 96375; J1815; J1885; J2270; J7030; J7040; Z7502 ==

== ENCOUNTER 2017-12-14 23:39 | Emergency (ER) | END 2017-12-15 05:40 | disposition home or self-care (01) ==

== ENCOUNTER 2018-03-19 14:02 | Emergency (ER) | END 2018-03-19 18:10 | disposition home or self-care (01) ==

== ENCOUNTER 2018-03-19 22:11 | Emergency (ER) | END 2018-03-20 01:50 | disposition home or self-care (01) ==

== ENCOUNTER 2018-10-02 08:36 | Emergency (ER) | payer OTHER ==
[~2018-10-02] VITALS: Ht 170.2 cm; Wt 101.5 kg
[~2018-10-02 08:36] MED LIST changes: -ATEN-51 PO; +ATEN50TA PO; -BENA40TA41 PO; +BENA40TA56 PO; +GABA100C14 PO; +IBUP800T48 PO; -INSU100C SC; +INSU100C SQ; +INSU100I33 SC; -LANT3I SC
[2018-10-02 08:45] VITALS: Ht 170.2 cm; Wt 101.5 kg
[2018-10-02] MEDS ORDERED: SOD CHLORIDE 0.9% 1,000 ML IV STA (09:06)
[2018-10-02] MEDS ORDERED: ONDANSETRON 4 MG INJ IV STA (09:06)
[2018-10-02] MEDS ORDERED: KETOROLAC 30 MG INJ IV STA (09:06)
[2018-10-02] MEDS ORDERED: CIPR500T4 PO (10:28)
[2018-10-02] MEDS ORDERED: CEFTRIAXONE 1 GM/50 ML (PMX) 50 ML IVPB ONE (10:30)
[2018-10-02 11:31] VITALS: BP 158/60; PULSE 82; RESP 19
--- NOTE | 2018-10-02 11:35 | ERD ---
ER Documentation Chief Complaint Chief Complaint PT with RUQ AP and nausea since yesterday. HPI 48-year-old male presenting with right upper quadrant pain and some right-sided flank pain x2 days. Patient states that this pain is constant. Denies any nausea or vomiting. Denies fevers. Has not taken medications. Denies any changes in bowel movements and denies dysuria. Medical history is diabetes insulin-dependent. NKDA. Surgical history left shoulder surgery. Social history denies ROS All systems reviewed and are negative except as per history of present illness. Medications Home Meds Active Scripts Ciprofloxacin Hcl* (Ciprofloxacin Hcl*) 500 Mg Tablet, 500 MG PO BID for 10 Days, TAB Prov:KIRSTIE PAK PA-C 10/02/18 Ibuprofen* (Motrin*) 800 Mg Tab, 800 MG PO Q6H PRN for PAIN AND OR ELEVATED TEMP, #30 TAB Prov:JODEE LOVE MD 03/20/18 Reported Medications Gabapentin* (Gabapentin*) 100 Mg Capsule, 100 MG PO DAILY, #90 CAP 03/20/18 Benazepril Hcl* (Benazepril Hcl*) 40 Mg Tablet, 40 MG PO BID, #30 TAB 03/20/18 Atenolol* (Atenolol*) 50 Mg Tablet, 50 MG PO BID, #60 TAB 03/20/18 Insulin Lispro (Humalog) 100 Unit/1 Ml Cartridge, 0 SQ SLIDING SCALE, EA DEPENDS ON BLOOD SUGAR, INJECTED 20-40 UNITS 03/20/18 Insulin Glargine,Hum.rec.anlog (Basaglar Kwikpen U-100) 100 Unit/1 Ml Insuln.pen, 0 SC AC BREAKFAST DINNER, EA TAKE 20-40 UNITS BID 03/20/18 Allergies Allergies: Coded Allergies: No Known Allergy (Verified , 03/20/18) PMhx/Soc History of Surgery: Yes (L- SHOULDER, L-KNEE) Anesthesia Reaction: No Hx Neurological Disorder: No Hx Respiratory Disorders: No Hx Cardiac Disorders: Yes (HTN) Hx Psychiatric Problems: No Hx Miscellaneous Medical Probl: Yes (DM ) Hx Alcohol Use: Yes (OOC) Hx Substance Use: No Hx Tobacco Use: No Smoking Status: Never smoker FmHx Family History: No diabetes, No coronary disease, No other Physical Exam Vitals Vital Signs Date Temp Pulse Resp B/P (MAP) Pulse Ox O2 O2 Flow FiO2 Time Delivery Rate 10/02/18 98.1 82 19 158/60 99 Room Air 11:31 (92) 10/02/18 98.6 94 18 179/87 98 08:45 (117) Physical Exam GENERAL: The patient is well-appearing, well-nourished, in no acute distress HEENT: Atraumatic. Conjunctivae are pink. Pupils equal, round, and reactive to light. There is no scleral icterus. Tympanic membranes clear bilaterally. Oropharynx clear. CHEST: Clear to auscultation bilaterally. There are no rales, wheezes or rhonchi. HEART: Regular rate and rhythm. No murmurs, clicks, rubs or gallops. ABDOMEN:Soft, nontender and nondistended. Good bowel sounds. No rebound or guarding. No gross peritonitis. No gross organomegaly or masses. BACK: No midline or flank tenderness. Result Diagram: 10/02/1892110/02/18921 Results 24 hrs Laboratory Tests Test 10/02/18 09:22 10/02/18 09:31 White Blood Count 13.7 10^3/ul Red Blood Count 5.14 10^6/ul Hemoglobin 15.5 g/dl Hematocrit 45.8 % Mean Corpuscular Volume 89.1 fl Mean Corpuscular Hemoglobin 30.2 pg Mean Corpuscular Hemoglobin Concent 33.8 g/dl Red Cell Distribution Width 12.6 % Platelet Count 242 10^3/UL Mean Platelet Volume 9.9 fl Immature Granulocytes % 0.400 % Neutrophils % 79.0 % Lymphocytes % 14.1 % Monocytes % 5.5 % Eosinophils % 0.6 % Basophils % 0.4 % Nucleated Red Blood Cells % 0.0 /100WBC Immature Granulocytes # 0.050 10^3/ul Neutrophils # 10.8 10^3/ul Lymphocytes # 1.9 10^3/ul Monocytes # 0.8 10^3/ul Eosinophils # 0.1 10^3/ul Basophils # 0.1 10^3/ul Nucleated Red Blood Cells # 0.0 10^3/ul Urine Color YELLOW Urine Clarity SLIGHTLY CLOUDY Urine pH 6.0 Urine Specific [place] 1.019 Urine Ketones TRACE mg/dL Urine Nitrite POSITIVE mg/dL Urine Bilirubin NEGATIVE mg/dL Urine Urobilinogen NEGATIVE mg/dL Urine Leukocyte Esterase 1+ Rm/ul Urine Microscopic RBC 1 /HPF Urine Microscopic WBC 23 /HPF Urine Bacteria FEW /HPF Urine Hemoglobin NEGATIVE mg/dL Urine Glucose NEGATIVE mg/dL Urine Total Protein NEGATIVE mg/dl Sodium Level 141 mmol/L Potassium Level 3.9 mmol/L Chloride Level 100 mmol/L Carbon Dioxide Level 32 mmol/L Anion Gap 9 Blood Urea Nitrogen 15 mg/dl Creatinine 0.95 mg/dl Est Glomerular Filtrat Rate mL/min > 60 mL/min Glucose Level 185 mg/dl Calcium Level 9.3 mg/dl Total Bilirubin 1.2 mg/dl Direct Bilirubin 0.00 mg/dl Indirect Bilirubin 1.2 mg/dl Aspartate Amino Transf (AST/SGOT) 36 IU/L Alanine Aminotransferase (ALT/SGPT) 38 IU/L Alkaline Phosphatase 127 IU/L Total Protein 8.3 g/dl Albumin 4.4 g/dl Globulin 3.90 g/dl Albumin/Globulin Ratio 1.12 Lipase 105 U/L Bedside Glucose 192 mg/dL Current Medications Medications Dose Sig/Kelvin Start Time Status Last (Trade) Ordered Route PRN Stop Time Admin Dose Reason Admin Sodium 1,000 ml @ Q1H STAT 10/02/18 DC 10/02/18 Chloride 1,000 mls/hr IV 09:06 10/02/18 09:35 10:05 Ondansetron 4 mg ONCE STAT 10/02/18 DC 10/02/18 HCl (Zofran IV 09:06 10/02/18 09:34 Inj) 09:08 Ketorolac 30 mg ONCE STAT 10/02/18 DC 10/02/18 Tromethamine IV 09:06 10/02/18 09:35 (Toradol) 09:08 Ceftriaxone 50 ml @ ONCE ONCE 10/02/18 DC 10/02/18 Sodium 100 mls/hr IVPB 10:30 10/02/18 10:34 10:59 Procedures/MDM DIAGNOSTIC IMAGING REPORT Patient: LIANA ESTRADA : 1970 Age: 48 Sex: M MR #: [id number] DOS: 10/02/18 0906 Ordering MD: GERSON PAK PA-C Location: [facility] Room/Bed: PROCEDURE: CT abdomen and pelvis without contrast. CLINICAL INDICATION: Abdominal pain. TECHNIQUE: CT scan of the abdomen and pelvis without contrast was performed on a multi-slice CT scanner . Sagittal and coronal reformatted images were obtained from the axial source images. One or more of the following dose reduction techniques were used: - Automated exposure control. - Adjustment of the mA and/or kV according to patient size. - Use of iterative reconstruction technique. DICOM images are available DLP 1263.5 mGycm. CTDIvol 19.69 mGy COMPARISON: 03/20/2018 FINDINGS: Fine detail of the soft tissues is limited secondary to the lack of IV contrast. Evaluation for enhancing lesions cannot be performed. Lower thorax:The lung bases are clear. Liver: There is diffuse fatty infiltration of the liver with no gross focal lesion. Biliary: The gallbladder is unremarkable without surrounding inflammation. No biliary dilatation. Pancreas: Homogeneous density of the pancreas without visible focal lesion or cystic abnormality. There is no pancreatic ductal dilatation. Spleen: Unremarkable without enlargement or focal lesion. Adrenal Glands: The adrenal glands are within normal limits without mass. Urinary: The kidneys are symmetric in size bilaterally. There are no visible renal or ureteral stones. There is no hydronephrosis. Gastrointestinal: No evidence of bowel obstruction or inflammation. There is no appendicitis. Lymph nodes: There are no enlarged lymph nodes. Vascular: There is aortic atherosclerosis without aneurysmal dilatation. Peritoneum/mesentery: No free fluid or free air. Reproductive organs: The prostate is grossly unremarkable. Musculoskeletal: Degenerative changes are seen in the lumbar spine with no acute osseous abnormality Other: None IMPRESSION: Fatty liver. No evidence of bowel obstruction or inflammation. There is no appendicitis. Atherosclerotic disease is present. No renal or ureteral calculi with no evidence of hydronephrosis. ER course: 1 L normal saline given ED. IV Rocephin given as patient's urine appears to be infected and dirty. MDM: 48-year-old male presenting with right upper quadrant pain. Patient's exam is within normal limits and does have some right flank pain. Patient has findings consistent with urinary tract infection. Patient does not have nephrolithiasis noted on CT low suspicion for septic stone at this time. Is di scharged with strict ER precautions. All questions answered at discharge Departure Diagnosis: Primary Impression: UTI (urinary tract infection) Condition: Stable Patient Instructions: Understanding Urinary Tract Infections (UTIs) Additional Instructions: FOLLOW UP WITH YOUR PRIMARY CARE PHYSICIAN TOMORROW.Return to this facility if you are not improving as expected. KIRSTIE PAK PA-C October 02, 2018 11:35
== END 2018-10-02 11:32 | disposition home or self-care (01) ==
LOC: FTE 08:36
DX: N39.0 Urinary tract infection, site not specified (principal); E11.9 Type 2 diabetes mellitus without complications; I10 Essential (primary) hypertension; Z79.4 Long term (current) use of insulin
CPT/HCPCS: 36415; 74176; 80053; 81001; 82962; 83690; 85025; 96361; 96365; 96375; J0696; J1885; J2405; J7030; Z7502